=== PATIENT | female | born 1945 | race Caucasian/White ===

== ENCOUNTER → 2017-08-08 | Outpatient (CLI) | payer OTHER ==
[~2017-08-08] MED LIST: AMLODIPINE BESY10 MG PO; ASPIR 8181 M1 PO; ASPIR 8181 MG PO; CINNAMON500 MG PO; D3-5050000 UNIT PO; ELIQUIS5 MG PO; FISH OIL 1,001000 M2 PO; GARLIC1 EACH PO; GLUCOSAMINE HC500 MG PO; HYDROCHLOROTH12.5 M1 PO; HYDROCODON-ACE1 EAC7 PO; HYDROCODONE-AP1 EAC6 PO; KEFLEX250 MG PO; KEFLEX500 MG PO; KLOR-CON 1010 MEQ PO; LASIX 40 MG TAB40 M2 PO; LEVOTHYROXINE100 MC1 PO; LISINOPRIL10 MG PO; MAGOX 400400 MG PO; MINOCIN100 MG PO; NORVASC5 MG PO; SYNTHROID137 MC1 PO; TYLENOL EXTRA500 MG PO; VITAMIN E400 UNIT PO; ZESTORETIC 20-1 EACH PO
== END ==
LOC: M.WC 00:59
DX: E11.621 Type 2 diabetes mellitus with foot ulcer (principal); L97.512 Non-pressure chronic ulcer of other part of right foot with fat layer exposed; I87.2 Venous insufficiency (chronic) (peripheral); I10 Essential (primary) hypertension; E03.9 Hypothyroidism, unspecified

== ENCOUNTER 2017-09-03 12:36 | Inpatient (IN) | payer OTHER ==
[~2017-09-03] VITALS: Ht 157.5 cm; Wt 121.5 kg
[~2017-09-03 12:36] MED LIST changes: -AMLODIPINE BESY10 MG PO; -ASPIR 8181 MG PO; -ELIQUIS5 MG PO; -HYDROCHLOROTH12.5 M1 PO; -HYDROCODONE-AP1 EAC6 PO; -KEFLEX250 MG PO; -KLOR-CON 1010 MEQ PO; -LASIX 40 MG TAB40 M2 PO; -LEVOTHYROXINE100 MC1 PO; -LISINOPRIL10 MG PO; -MAGOX 400400 MG PO; -NORVASC5 MG PO; -TYLENOL EXTRA500 MG PO
[2017-09-03 12:45] VITALS: BP 181/98
[2017-09-03 13:04] LABS: ABSOLUTE BASOPHILS 0.1 thou/uL (0.0-0.2); ABSOLUTE EOSINOPHILS 0.1 thou/uL (0.0-0.7); ABSOLUTE LYMPHOCYTES 2.2 thou/uL (0.8-5.3); ABSOLUTE MONOCYTES 1.6 thou/uL (0.0-1.2); ABSOLUTE NEUTROPHILS 10.4 thou/uL (1.6-8.1); BASOPHILS 0.4 %; EOSINOPHILS 0.5 %; HEMATOCRIT 52.8 % (37.0-47.0); HEMOGLOBIN 17.7 gm/dL (12.0-15.0); LYMPHOCYTES 15.7 %; MCH 32.4 pg (26.0-34.0); MCHC 33.6 g/dL (28.0-37.0); MCV 96.7 fL (80.0-100.0); MONOCYTES 10.9 %; MPV 8.4 fl. (7.2-11.1); NUCLEATED RBCS 0 /100WBC; PLATELET COUNT* 224 thou/uL (150-400); POLYS 72.5 %; RBC 5.46 mil/uL (4.20-5.00); RDW-CV 13.5 % (10.5-14.5); WBC 14.3 thou/uL (4.0-11.0)
[2017-09-03] MEDS ORDERED: HYDROCHLOROTH12.5 M1 PO (13:12)
[2017-09-03 13:16] LABS: APTT 24.7 Seconds (25.0-31.3); INR 1.5; PROTIME 14.8 Seconds (9.20-11.50)
[2017-09-03 13:21] LABS: CALCIUM 9.3 mg/dL (8.5-10.1)
[2017-09-03 13:24] LABS: POTASSIUM 2.9 mmol/L (3.5-5.1)
[2017-09-03 13:30] LABS: ALBUMIN 3.2 g/dL (3.4-5.0); CK-MB MASS 2.5 ng/mL (<0.5-3.6); MAGNESIUM 1.6 mg/dL (1.8-2.4); TOTAL BILIRUBIN 2.1 mg/dL (<0.1-1.0); TOTAL PROTEIN 7.8 g/dL (6.4-8.2); TROPONIN-I LEVEL 0.08 ng/mL (<0.06)
[2017-09-03 17:19] VITALS: BP 175/85
--- NOTE | 2017-09-03 17:55 | NUR ---
PT TO ROOM FROM ER . APPEARS ALERT O X 4, DENIES CHEST PAIN AT REST, STATES CHEST PAIN OR ABDOMINAL PAIN WITH DEEP BREATH ONLY, STATES ALSO HURTS MORE WHEN COUGHS. A-FIB ON MONITOR, RATE LOW 60S E, NEW ONSET PER ER REPORT, IS ON HEPARIN GTT AT 1500 UINITS PER HOUR, NEXT PTT A5 2100, DENIES SOB, ALSO C/O R FOOT PAIN, RECENT SKIN GRAFTS TO R FOOT.
[2017-09-03 19:33] VITALS: BP 142/78
--- NOTE | 2017-09-03 19:50 | NUR ---
PT SITTING UP IN CHAIR, REMAINS ALERT O X 4, NO C/O, A-FIB ON MONITOR, RATE LOW 60SW, CARDIOLOGY CONSULTED, DR VAZQUEZ WAS UPDATED
[2017-09-03 20:00] VITALS: BP 149/90
[2017-09-03 22:30] VITALS: BP 149/90
[2017-09-04] VITALS (7 sets, daily range): BP systolic 100–190; BP diastolic 62–97
--- NOTE | 2017-09-04 04:09 | NUR ---
ASSUMED CARE OF PT AT 1930, NURSING ASSESSMENT COMPLETED AT START OF SHIFT, PT VOICED NO CONCERNS THIS SHIFT, PT ON TELE MONITOR, TRACING AFIB. CONTINUES ON HEPARIN DRIP AT THIS TIME, PT EDUCATED ON FALL PRECAUTIONS, PT ALSO EDUCATED ON IMPORTANCE OF ALLOWING NURSING STAFF TO ASSIST PATIENT. PT VOICED UNDERSTANDING. CALL LIGHT WITHIN REACH. HOURLY ROUNDING COMPLETED THIS SHIFT.
[2017-09-04 05:23] LABS: HEMATOCRIT 50.3 % (37.0-47.0); HEMOGLOBIN 16.5 gm/dL (12.0-15.0); MCH 31.9 pg (26.0-34.0); MCHC 32.8 g/dL (28.0-37.0); MCV 97.1 fL (80.0-100.0); MPV 8.9 fl. (7.2-11.1); RBC 5.19 mil/uL (4.20-5.00); RDW-CV 13.6 % (10.5-14.5); WBC 14.1 thou/uL (4.0-11.0)
[2017-09-04 05:53] LABS: ALKALINE PHOSPHATASE 96 U/L (46-116); ANION GAP 6 mmol/L (7-16); BUN 22 mg/dL (7-18); CALCIUM 8.9 mg/dL (8.5-10.1); CHLORIDE 99 mmol/L (98-107); CO2 37 mmol/L (21-32); GLUCOSE 109 mg/dL (70-99); MAGNESIUM 1.7 mg/dL (1.8-2.4); POTASSIUM 3.7 mmol/L (3.5-5.1); SGOT 111 U/L (15-37); SGPT 79 U/L (30-65); SODIUM 142 mmol/L (136-145); TOTAL BILIRUBIN 1.7 mg/dL (<0.1-1.0); TOTAL PROTEIN 7.3 g/dL (6.4-8.2); TROPONIN-I LEVEL <0.06 ng/mL (<0.06)
--- NOTE | 2017-09-04 11:49 | EKG ---
[place] [address] ELECTROCARDIOGRAM REPORT Name: JOYCE SHER Room: [address] ADM IN .R.#: [id number] Admission: 09/03/17 Attend Phys: Rich Barrett, Discharge: Date of : 43 Report #: [id number] THIS REPORT FOR: //name// [facility] ED Test Date: 2017-09-03 Test Time: 12:45:42 Pat Name: JOYCE SHER Department: Room: [facility] Gender: F [employer] Operator: Anya BOO : 1945 Requested By: Mitch Echols Order Number: [id number] MD: Rei Quintanilla Measurements Intervals [place] Rate: 89 P: TN: QRS: 40 QRSD: 78 T: -27 QT: 446 QTc: 543 Interpretive Statements Atrial fibrillation Ventricular tachycardia, unsustained Aberrant conduction of SV complex(es) Low voltage, extremity and precordial leads Consider anterior infarct Compared to ECG 12/28/2016 02:03:30 Ventricular tachycardia now present Aberrant conduction of supraventricular beat(s) now present Sinus rhythm no longer present Atrial premature complex(es) no longer present First degree AV block no longer present Myocardial infarct finding still present Electronically Signed On 09-04-2017 11:48:55 SOLARIS ADMINISTRATOR by Rei Quintanilla [email or web address] <ELECTRONICALLY SIGNED> By: Rei Quintanilla MD, [facility] 09/04/17 1148 1245 1245 Rei Quintanilla MD, [facility] /EPI
--- NOTE | 2017-09-04 19:58 | NUR ---
I ASSUMED CARE OF THE PATIENT AT 0700. SHE IS ALERT AND ORIENTED X4, BED IS IN THE LOW LOCKED POSITION AND CALL LIGHT IS IN REACH. HOURLY ROUNDING WAS DONE AND PATIENT NEEDS ARE MET. PAIN IS MANAGED WITH PRN MEDS. URINE STUDIES WERE ORDERED BY NEPHROLOGY AND WOUND CARE DRESSING WAS DONE ON HER RIGHT FOOT. MAGNESIUM WAS REPLACED AND WILL BE REDRAWN WITH AM LABS. ECHO IS SCHEDULED FOR 09/05/17. NEW CONSULTS WERE ORDERED. PATIENT HAS REQUESTED SOMETHING TO HELP HER PRODUCE A STOOL BUT DOESN'T WANT IT UNTIL MORNING SO SHE CAN SLEEP TONIGHT. REPORT GIVEN AND WILL CONTINUE TO MONITOR. UP WITH ASSIST X1 TO THE COMMODE.
[2017-09-05 04:06] VITALS: BP 143/74
[2017-09-05 05:03] LABS: URINE BILIRUBIN NEGATIVE (Negative); URINE BLOOD 2+ (Negative); URINE CLARITY CLEAR; URINE COLOR YELLOW; URINE GLUCOSE-RANDOM NEGATIVE (Negative); URINE KETONES NEGATIVE (Negative); URINE LEUKOCYTES NEGATIVE (Negative); URINE NITRITE NEGATIVE (Negative); URINE PROTEIN TRACE (Negative); URINE UROBILINOGEN 0.2 E.U./dl (0.2-1.0)
--- NOTE | 2017-09-05 05:06 | NUR ---
ASSUMED CARE OF PT AT 1930, NURSING ASSESSMENT COMPLETED AT START OF SHIFT, PT VOICED NO CONCERNS. PT CONTINUES ON TELE MONITOR TRACING AFIB IN THE 60'S. HEPARIN DRIP INFUSING AT 11 ML/HR. PRN PAIN MEDICATION ADMINISTERED X1 THIS SHIFT. PT NPO AFTER MIDNIGHT FOR ECHO THIS AM. PT EDUCATED ON IMPORTANCE AND VERBALIZED UNDERSTANDING. FALL PRECAUTIONS IN PLACE, CALL LIGHT WITHIN REACH.
[2017-09-05 05:23] LABS: HEMATOCRIT 50.5 % (37.0-47.0); HEMOGLOBIN 16.6 gm/dL (12.0-15.0); MCH 32.1 pg (26.0-34.0); MCHC 32.9 g/dL (28.0-37.0); MCV 97.5 fL (80.0-100.0); RBC 5.18 mil/uL (4.20-5.00); RDW-CV 13.5 % (10.5-14.5); WBC 12.7 thou/uL (4.0-11.0)
[2017-09-05 05:35] LABS: CALCIUM 8.5 mg/dL (8.5-10.1); POTASSIUM 3.4 mmol/L (3.5-5.1)
[2017-09-05 06:10] LABS: CASTS None Seen /LPF (None Seen); MUCUS 4-6 Moderate strn/LPF (None Seen); SQUAMOUS >10 Many /LPF (0-3)
[2017-09-05 06:11] LABS: CRYSTALS None Seen /LPF (None Seen); URINE RBC 3-10 Few /HPF (0-2); URINE WBC 0-5 Rare /HPF (0-5)
[2017-09-05 08:30] VITALS: BP 144/71
[2017-09-05] MEDS ORDERED: NORVASC5 MG PO (08:39)
[2017-09-05] MEDS ORDERED: ELIQUIS5 MG PO (08:39)
[2017-09-05 11:46] VITALS: BP 149/89
--- NOTE | 2017-09-05 14:21 | 2DMMODE ---
[place] [address] 2 D/M-MODE ECHOCARDIOGRAM Name: JOYCE SHER Room: [address] IN .R.#: [id number] Admission: 09/03/17 Attend Phys: Rich Potts Discharge: Date of : 43 Date of Service: 09/05/17 1421 Report #: [id number] THIS REPORT FOR: //name// APPROVED REPORT Study performed: 09/05/2017 09:46:03 EXAM: Comprehensive 2D, Doppler, and color-flow Echocardiogram Patient Location: Bedside BSA: 2.17 HR: 66 bpm BP: 143/74 mmHg Other Information Study Quality: Fair Technically limited study due to uncooperative patient, inability to position patient. Indications Atrial Fibrillation 2D Dimensions LVEF(%): 49.64 (>50%) IVSd: 12.33 (7-11mm) LVOT Diam: 18.39 (18-24mm) LVDd: 41.41 mm PWd: 11.75 (7-11mm) Ascending Ao: 26.96 (22-36mm) LVDs: 31.12 (25-40mm) Aortic Root: 21.65 mm Herzog's LVEF: 49.64 % Volumes Left Atrial Volume (Systole) LA ESV Index: 37.30 mL/m2 Aortic Valve AoV Peak Juanito.: 1.93 m/s AO Peak Gr.: 14.92 mmHg AO Mean Gr.: 9.47 mmHg AO V2 VTI: 37.55 cm Mitral Valve E/A Ratio: 4.02 MV Decel. Time: 198.91 ms MV E Max Juanito.: 1.04 m/[place] [address] 2 D/M-MODE ECHOCARDIOGRAM Name: NIKKYJOYCE Wiley Room: [address] IN [facility]#: [id number] Admission: 09/03/17 Attend Phys: Rich Potts Discharge: Date of : 43 Date of Service: 09/05/17 1421 Report #: [id number] MV PHT: 57.68 ms MVA (PHT): 3.81 cm2 TDI E/Lateral E': 10.40 E/Medial E': 13.00 Medial E' Juanito.: 0.08 m/s Lateral E' Juanito.: 0.10 m/s Pulmonary Valve PV Peak Juanito.: 0.78 m/s PV Peak Gr.: 2.46 mmHg Tricuspid Valve RAP Estimate: 5.00 mmHg TR Peak Gr.: 19.07 mmHg RVSP: 24.07 mmHg PA Pressure: 24.07 mmHg Left Ventricle The left ventricle is normal size. There is normal LV segmental wall motion. Mild concentric left ventricular hypertrophy. Left ventricular systolic function is normal. The left ventricular ejection fraction is within the normal range. LVEF is 50-55%. The left ventricular diastolic function is normal. Right Ventricle Right ventricle is mildly dilated. The right ventricular systolic function is normal. Atria Left atrium is mildly dilated. Right atrium is dilated. Aortic Valve Aortic valve is calcified. Trace aortic regurgitation. There is no aortic valvular stenosis. Mitral Valve The mitral valve is normal in structure. There is no mitral valve regurgitation noted. No evidence of mitral valve stenosis. Tricuspid Valve The tricuspid valve is normal in structure. Mild tricuspid regurgitation. estimated pa pressure 25 mm Hg Pulmonic Valve Pulmonic valve is not well visualized. [place] [address] 2 D/M-MODE ECHOCARDIOGRAM Name: JOYCE SHER Room: [address] IN ..#: [id number] Admission: 09/03/17 Attend Phys: Rich Potts Discharge: Date of : 43 Date of Service: 09/05/17 1421 Report #: [id number] Great Vessels The aortic root is normal in size. IVC is not visualized. Pericardium There is no pericardial effusion. Pleural effusion. <Conclusion> Mild concentric left ventricular hypertrophy. LVEF is 50-55%. Left atrium is mildly dilated. Right atrium is dilated. Aortic valve is calcified. <ELECTRONICALLY SIGNED> By: Abdifatah Prakash MD, FACC 09/05/17 1421 1421 142 Abdifatah Prakash MD, FAC /INF
--- NOTE | 2017-09-05 15:00 | NUR ---
PT IN CHAIR FOR BREAKFAST. A & 0 X4. ASSESSMENT COMPLETE. AFIB ON MONITOR. PT TO RADIOLOGY FOR US. CHRIS WELL. PT STATES SHE FEELS TOO WEAK TO DISCHARGE TODAY. CALL PLACED TO DR. GARCIA WHO AGREES TO HOLD DC. NEEDED ITEMS AND CALL LIGHT IN REACH.
--- NOTE | 2017-09-05 15:46 | NUR ---
WOUND CARE NOTE: PATIENT OUT OF ROOM, WILL ATTEMPT TO SEE TOMORROW.
--- NOTE | 2017-09-05 15:56 | NUR ---
CM ASSESSMENT: Pt is A&O. Resides at home with her . Independent with ADLs. No DME. No hx of HH or SNF. Supportive family that is involved in POC. Goal is to return home once medically stable. Following.
[2017-09-05 16:00] VITALS: BP 118/69
[2017-09-05 20:00] VITALS: BP 145/77
[2017-09-06] VITALS (7 sets, daily range): BP systolic 111–148; BP diastolic 57–86
--- NOTE | 2017-09-06 02:27 | NUR ---
PATIENT WAS TRANSFERRING WITH STAFF FROM COMMODE TO BED, WHICH WAS NOT EVEN A FOOT APART WHEN PATIENT TOOK A STEP AND FELL BACKWARDS ON HER BOTTOM. PATIENT DID HAVE YELLOW SOCKS ON. PATIENT DID NOT HIT HER HEAD, DENIES PAIN AND INJURY, POST FALL ASSESSMENT WNL. NO CHANGE IN MENTATION. VSS. FALL PRECAUTIONS IN PLACE. BED LOCKED AND IN LOW POSITION. CALL LIGHT WITHIN REACH
--- NOTE | 2017-09-06 07:46 | NUR ---
PATIENT PROGRESSING TOWARDS GOALS: PATIENT SLEPT WELL THROUGHOUT SHIFT WITH RELIEF OF ANXIETY WITH CLONOPINE. PATIENT STATED THIS AM THAT SHE WAS "ANTICIPATING DISCHARGE HOME TODAY." PATIENT'S VSS THIS SHIFT. PATIENT REMAINS ON 2L O2 NC WITH SATS >92%. PATIENT DENIES PAIN AND DISCOMFORT. HOURLY ROUNDING OBSERVED. CALL LIGHT WITHIN REACH
[2017-09-06] MEDS ORDERED: MAGOX 400400 MG PO (09:21)
[2017-09-06] MEDS ORDERED: KLOR-CON 1010 MEQ PO (09:21)
--- NOTE | 2017-09-06 11:51 | NUR ---
ASSUMED PT CARE AT 0700 PT IS ALERT AND ORIENTED X 4 PT DENIES PAIN OR SOA PT IS UP WITH ASSIST PT IS A FALL RISK BED ALARM IS ON PT CALLS OUT APPROPRIATELY, PT IS AFIB ON THE MONITOR, PT HAD BOWEL MOVEMENT TODAY, PT LIVES AT HOME WITH WHO HELPS WITH CARE, PT WILL DISCHARGE TO HOME WILL CONTINUE TO MONITOR
[2017-09-06] MEDS ORDERED: HYDROCODONE-AP1 EAC6 PO (13:16)
--- NOTE | 2017-09-06 15:20 | CON ---
[address] [address] CONSULTATION Name: JOYCE SHER Room: [address] IN M.R.#: [id number] Admission: 09/03/17 Attend Phys: Rich Barrett, Discharge: Date of : 43 Report #: [id number] THIS REPORT FOR: //name// CC: Tanner Barrett CHIEF COMPLAINT: Abdominal pain, atrial fibrillation. 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 From a cardiovascular standpoint, she has minimal complaints. She has no complaints of palpitations, heart racing or skipping. She denies chest pain or pressure. She has chronic shortness of breath. She presents with a slow ventricular response and atrial fibrillation with heart rates in the 60s. She has been placed on IV heparin and seems to be tolerating it. She denies any history of GI bleeding. She has no documented history of cardiac abnormalities. PAST MEDICAL HISTORY: Significant for chronic cellulitis, morbid obesity, debilitation, hypertension, diabetes mellitus. SOCIAL HISTORY: She is a nonsmoker. She is and lives with her . PAST SURGICAL HISTORY: No recent surgeries. HOME MEDICATIONS: Include Zestoretic 24/12.5 mg daily, aspirin, Synthroid 0.25 mg daily, and cinnamon. She has been placed on IV heparin here in the hospital. REVIEW OF SYSTEMS: GASTROINTESTINAL: Positive abdominal pain, nausea, vomiting. SKIN: Positive cellulitis. MUSCULOSKELETAL: Positive foot pain. GASTROINTESTINAL: No nausea, vomiting, hematemesis or melena. CARDIOVASCULAR: Positive irregular heartbeats very rarely. Denies shortness of breath. No chest pain, palpitations. NEUROLOGIC: Denies slurred speech, numbness or weakness. No documented history of stroke or transient ischemic attack. HEMATOLOGIC: No anemia or bleeding disorders. RENAL: Positive history of mild renal insufficiency. PHYSICAL EXAMINATION: [place] [address] CONSULTATION Name: JOYCE SHER Room: [address]#: [id number] Admission: 09/03/17 Attend Phys: Rich Barrett, Discharge: Date of : 43 Report #: [id number] VITAL SIGNS: Blood pressure 130/95, pulse 65 in atrial fibrillation, temperature is 36.9. GENERAL: This is a morbidly obese elderly female. She is a poor historian, is alert, in no apparent distress. HEENT: Eyes, EOMs intact. No facial asymmetry. NECK: Supple. No jugular venous distention. CARDIOVASCULAR: Irregular. I could hear a faint heart murmur. ABDOMEN: Nontender. EXTREMITIES: No peripheral edema. SKIN: Warm and dry. There is +1 to 2 edema. NEUROLOGICAL: Not formally tested. LABORATORY DATA: Electrocardiogram demonstrates atrial fibrillation, slow ventricular response. IMPRESSION: 1. Thromboembolism, likely this is cardiovascular in etiology, if she has concern for chronic infection, I would consider also evaluation for bacterial endocarditis. We will check an echocardiogram to assess left ventricular function. At this point in time, she has been placed on IV heparin and given her atrial fibrillation and her CHADS-VASc score of 4, I would recommend further evaluation and treatment with an oral anticoagulant, Eliquis would be appropriate. 2. Atrial fibrillation. This is rate controlled and she is minimally symptomatic. She does have findings compatible with congestive heart failure, this may be systolic in etiology. 3. Morbid obesity. 4. Diabetes mellitus. <ELECTRONICALLY SIGNED> By: Rei Quintanilla MD, FACC 09/06/17 1520 [id number] Quintanilla MD, FACC /nt
--- NOTE | 2017-09-06 15:30 | NUR ---
Pt dc delayed, ex ox completed, Pt 86% on RA. Updated Dr Tapia, he wants Pt to go to [facility], discussed with Pt and she is in agreement. Faxed referral to [facility]. PT/OT orders received. Anticipate dc tomorrow. Spoke with Katya at , they have beds available. Faxed initial referral, therapy notes will need to be faxed once available [phone]
--- NOTE | 2017-09-06 16:46 | NUR ---
WOUND CARE NOTE: CONSULT RECEIVED FOR RIGHT FOOT WOUND. PATIENT IS S/P SKIN GRAFT TO RIGHT FOOT. PATIENT STATES DR. RIVREA PERFORMED THE PROCEDURE AND HAS HEALED THE WOUND. DORSAL ASPECT OF FOOT IS A BLACK, INTACT SKAB WITH SCALING TO THE JAMES-WOUND. NO DRAINAGE NOTED. LEFT OPTIFOAM BORDER IN PLACE TO PROTECT AREAS. RECOMMEND CHANGING DRESSING EVERY WEEK AND PRN. THE DRESSING SHOULD REMAIN IN PLACE TO ASSIST WITH KEEPING SCAB INTACT AND NOT TEARING THE SCALING SKIN OFF. WILL SIGN OFF AT THIS TIME, PLEASE RECONSULT IF NEEDED.
[2017-09-07] VITALS (9 sets, daily range): BP systolic 114–154; BP diastolic 61–92
--- NOTE | 2017-09-07 07:51 | NUR ---
PATIENT RESTED WELL THROUGH THE NIGHT. UP WITH ASSIST TO BSC. DENIES PAIN OR NEEDS. BED ALARM ON. REPORT GIVEN TO ONCOMING NURSE.
--- NOTE | 2017-09-07 13:36 | NUR ---
PATIENT IS ALERT AND ORIENTED TODAY, VERY PLEASANT. UP STAND BY WITH OXYGEN TUBING. PATIENT HAS NO COMPLAINTS OF ANY PAIN TODAY. VITAL SIGNS HAVE BEEN STABLE ON 2 LITERS OF OXYGEN THROUGH NASAL CANNULA. PATIENT IS SUPPOSE TO BE DISCHARGED TO A FACILITY LATER TODAY, WAITING ON AUTHORIZATION. CALL LIGHT IS IN REACH, WILL CONTINUE TO MONITOR.
[2017-09-08] VITALS: BP 132/83
[2017-09-08 04:19] VITALS: BP 130/81
[2017-09-08 08:00] VITALS: BP 124/53
--- NOTE | 2017-09-08 08:13 | NUR ---
PATIENT RESTED WELL THROUGH THE NIGHT. UP WITH ASSIST X2 TO BSC. DENIES PAIN OR NEEDS. ORDERS IN CHART FOR PATIENT TO HAVE ONE UNIT OF BLOOD REMOVED, DR. BARRAZA NOTIFIED TO CLARIFY ORDER, ORDERS RECEIVED AND NOTED. PUBLICIST NOTIFIED, STATES WILL BE DONE IN INFUSION LAB. REPORT GIVEN TO ONCOMING NURSE. BED ALARM ON. WILL MONITOR.
--- NOTE | 2017-09-08 09:20 | NUR ---
[facility] was received insurance auth, Pt can dc today to [facility] if medically stable. Following.
[2017-09-08 11:36] VITALS: BP 119/65
--- NOTE | 2017-09-08 12:23 | NUR ---
CONSULTED TO DO THERAPUTIC PHLEBOTOMY. SPOKE WITH PT AND DAUGHTER REGUARDING PROCESS. VOICED UNDERSTANDING AND DENIES QUESTIONS. 18G IV STARTED WITHOUT DIFFICULTY. 1 UNIT WHOLE BLOOD REMOVED VIA GRAVITY. REMAINED WITH PT 1:1 DURING PROCUDURE. TOLERATED WELL. IV REMOVED AT END. DENIES QUESTIONS OR NEEDS. PRIMARY NURSE IQRA AT BEDSIDE TO START POST HYDRATION PER ORDER.
--- NOTE | 2017-09-08 12:30 | NUR ---
RECEIVED REPORT. ASSUMED CARE OF PT AT 0730, PT A&O X4. VSS. O2 SAT 95% ON 2L PER NC. SALES DEVELOPMENT MANAGER IN PLACE TRACING AFIB. AM ASSESSMENT AND VITALS COMPLETED CHARTED. IV PATENT AND INFUSING POST THERAPEUTIC NORMAL SALINE INFUSION OF 25OML ORDERED BY DR. BARRAZA. 1 UNIT OF BLOOD SUCCESSFULLY TAKEN OFF BY MAITE REBOLLAR FROM INFUSION. PT RECEIVED 1:1 MONITORING DURING PROCEDURE. PT TOLERATED WELL. PT EATING AND DRINKING WITHOUT ISSUE. PT UP WITH ASSIST X1 TO BEDSIDE COMMODE - VOIDING WITHOUT ISSUE. PT INFORMED OF PLAN OF CARE. PT COMMUNICATES UNDERSTANDING. DAUGHTER AT BEDSIDE. HIGH RISK FALL PRECAUTIONS IN PLACE. CALL LIGHT IS WITHIN REACH. WILL CONTINUE TO MONITOR.
--- NOTE | 2017-09-08 14:09 | NUR ---
Nutrition: Pt seen for high BMI. Wt is usually around 270#. Pt was eating a yogurt from [employer] when I entered her room. She had finished all of her lunch. She stated she only eats a couple meals a day. "I do keep track of my sugars and my blood pressure." She seemed a little confused during conversation and got off on tangents easily. Good appetite, regular diet. Sometimes SOA upon eating. Plan is to go to [place] tomorrow. Mild risk.
[2017-09-08 15:50] VITALS: BP 139/63
--- NOTE | 2017-09-08 19:01 | NUR ---
VSS. 02 SAT REMAINS >90% ON 2L PER NC. PT A&O X4 BUT HAS SOME EPISODES OF FORGETFULLNESS. CARDAIC MONITOR IN PLACE WITH NO CHAGNES THIS SHIFT. PT PROGRESSING TOWARDS GOALS. PLAN IS TO DC TOMORROW TO [facility] IF LABS ARE STABLE. CBC PUT IN ORDERED BY DR BARRAZA. PT UP WITH ASSIST TO BEDSIDE COMMODE TO VOID; PT HAD ONE EPISODE OF STRESS INCONTINENCE. PT SHOWING GOOD APPETITE. IV SALINE LOCKED. PT HAS DENIED PAIN OR DISCOMFORT THROUGHOUT THE SHIFT. HOURLY ROUNDING PERFORMED. HIGH FALL RISK PRECAUTIONS IN PLACE. CALL LIGHT IS WITHIN REACH.
[2017-09-08 19:40] VITALS: BP 128/66
[2017-09-08 20:07] LABS: HEMATOCRIT 48.2 % (37.0-47.0); HEMOGLOBIN 15.6 gm/dL (12.0-15.0); MCH 31.9 pg (26.0-34.0); MCHC 32.3 g/dL (28.0-37.0); MCV 98.8 fL (80.0-100.0); MPV 7.6 fl. (7.2-11.1); RBC 4.88 mil/uL (4.20-5.00); RDW-CV 13.4 % (10.5-14.5); WBC 9.3 thou/uL (4.0-11.0)
[2017-09-09] VITALS: BP 125/79
[2017-09-09 04:32] VITALS: BP 134/72
--- NOTE | 2017-09-09 04:38 | NUR ---
ASSUMED CARE AT 1940, ASSESSMENT CHARTED. PATIENT ALERT/ORIENTED X4, SITTING UP IN CHAIR. UP WITH ASSIST X2 TO BSC. DENIES PAIN OR NEEDS. ASSISTED TO TURN IN BED Q2H. REFUSING SCD'S. MEDS PER MAR. BED ALARM ON. CALL LIGHT WITHIN REACH, ENCOURAGED TO CALL FOR NEEDS.
[2017-09-09 08:00] VITALS: BP 107/52
[2017-09-09] MEDS ORDERED: HYDROCODONE-AP1 EAC6 PO (10:43)
[2017-09-09] MEDS ORDERED: AMLODIPINE BESY10 MG PO (10:43)
[2017-09-09 11:30] VITALS: BP 118/55
--- NOTE | 2017-09-09 11:34 | NUR ---
Following through dc. Pt discharging to [facility] today, facility will provide dc transportation and will berry picker at 330pm. Faxed dc orders. Chart copied. Nurse report number provided, . aware of disposition.
--- NOTE | 2017-09-09 12:46 | NUR ---
ASSUMED CARE OF PT AT 0730. PT RESTING IN BED WAITING FOR BREAKFAST. PT A&0X4. DENIES ANY PAIN OR SHORTNESS OF BREATH AT THIS TIME. PT TRACING AFIB ON THE NURSE PRACTITIONER HOSPITALIST. RATE IN THE 60'S. PT ON 2L NC SAT 97%. PT TO HAVE REST AND EXERCISE SATURATION TODAY TO SEE IF WILL NEED OXYGEN AT DISCHARGE. PT GOAL FOR TODAY IS TO DISCHARGE TO [place] FOR REHAB. PT HAS STRESS INCONT. PT UP WITH 1-2 ASSIST. PT UNSTEADY AND WEAK AT TIMES. PT AT BEDSIDE THIS MORNING. PT TO WORK WITH PHYSICAL AND OCCUPATIONAL THERAPY TODAY. AM ASSESSMENT CHARTED. MEDICATIONS PER SEP. PT REPOSITIONS SELF IN BED WITH REMINDERS. HOURLY ROUNDING OBSERVED. BED IN LOW POSITION. BED ALARM IN PLACE. FALL PRECAUTIONS IN PLACE. CALL LIGHT WITHIN REACH. WILL CONTINUE PLAN OF CARE.
--- NOTE | 2017-09-09 13:24 | CON ---
[address] [address] CONSULTATION Name: NIKKYJOYCE K Room: [address] IN M.R.#: [id number] Admission: 09/03/17 Attend Phys: Rich Barrett, Discharge: Date of : 43 Report #: [id number] THIS REPORT FOR: //name// CC: Tanner Barrett DATE OF SERVICE: 09/05/2017 REQUESTING PHYSICIAN: Dr. Bj Clemons. REASON FOR CONSULTATION: Polycythemia. HISTORY OF PRESENT ILLNESS: The patient is a pleasant 72-year-old woman with multiple medical problems, morbid obesity, hypertension, diabetes mellitus who is admitted to the hospital with abdominal pain. She was found to have infarction of spleen and left kidney. She was found to have a mild polycythemia with elevated hematocrit and hemoglobin, red cells. Hematology consult is requested. She is doing much better now. She was found to have new atrial fibrillation on this admission, she is on anticoagulation. She says the abdominal pain is better. She does not have complaints of previous venous or arterial thrombosis. She states that she has been dealing with chronic cellulitis and wound on her toe for many months. This was recently cleared. Denies headaches. Denies paresthesia. Denies early satiety, weight loss. PAST MEDICAL HISTORY: Significant for multiple medical problems, which is mentioned in HPI. SOCIAL HISTORY: She lives in [place] with her . has macular degeneration. It is difficult for the patient and her to drive. She does not smoke. She is a never smoker. FAMILY HISTORY: Noncontributory. PHYSICAL EXAMINATION: GENERAL: Reveals obese woman, not in acute distress. VITAL SIGNS: Blood pressure 149/89, heart rate is 71, temperature 97.5, respirations 18. HEENT: Does not reveal thrush. LUNGS: Clear. ABDOMEN: Obese, nontender. EXTREMITIES: Lower extremities no edema. There is no supraclavicular or axial lymphadenopathy. SKIN: [place] [address] CONSULTATION Name: JOYCE SHER Room: [address] IN ..#: [id number] Admission: 09/03/17 Attend Phys: Rich Barrett, Discharge: Date of : 43 Report #: [id number] LABORATORY DATA: White count 12.7, hemoglobin 16.6, hematocrit 50.5, platelets ____. Erythropoietin level is pending. ASSESSMENT AND PLAN: Polycythemia, most likely reactive or secondary to possibly sleep apnea. I agree with erythropoietin level. Reviewing her previous medical records, she has not had polycythemia until January of last year. On the other hand, the patient has a new arterial infarct in setting of polycythemia and to make sure that this is not an underlying bone marrow problem. It is unlikely. I offered her to have followup at our clinic, but she does not want to drive. I plan to discuss this case with ____, primary care physician. I will advise to order CBC next week. If her red cells and hemoglobin is normal, no further workup is necessary. If it is still elevated, we will be happy to see her in our office. Thank you very much for allowing me to participate in care of this patient. <ELECTRONICALLY SIGNED> By: Mari Balderrama MD 09/09/17 1324 1633 2042Mari Balderrama MD /nt
--- NOTE | 2017-09-09 14:10 | NUR ---
DISCHARGE ORDERS RECEIVED. DISCHARGE INSTRUCTIONS, CARE NOTES, SCRIPTS AND FOLLOW UP APPTS COPIED AND PLACED IN FOLDER FOR TRANSPORTER. IV AND ASSISTANT CHIEF NURSING OFFICER REMOVED. DISCHARGE WOUND PHOTO TAKEN AND PLACED IN CHART UNDER PROGRESS NOTES. REPORT CALLED TO RUPA AT [facility]. PT DISCHARGED WITH ALL BELONGINGS AND PAPERWORK VIA WHEELCHAIR WITH WHEELCHAIR VAN SERVICE TO [facility].
--- NOTE | 2017-09-20 12:39 | CON ---
[address] [address] CONSULTATION Name: NIKKYJOYCE K Room: [address] IN M.R.#: [id number] Admission: 09/03/17 Attend Phys: Rich Barrett, Discharge: 09/09/17 Date of : 43 Report #: [id number] THIS REPORT FOR: //name// CC: Tanner Barrett DATE OF SERVICE: 09/04/2017 ATTENDING PHYSICIAN: Dr. Rich Barrett. CONSULTING PHYSICIAN: Dr. Rich Barrett REASON FOR CONSULTATION: Renal infarct. ADMISSION DIAGNOSES: Abdominal pain and some chest pain. HISTORY OF PRESENT ILLNESS: This is a very pleasant 72-year-old female with past medical history of diabetes type 2, but not on any medications for that; hypertension, who came in with abdominal pain and chest pain. She was found to have mildly elevated troponin in the ER and also likely new onset AFib. Her CT abdomen and pelvis with contrast showed evidence of both renal as well as splenic infarct. Creatinine is 1.0. At home, she does take hydrochlorothiazide and lisinopril. She denies any use of cocaine. She has been started on IV heparin. Cardiology has been consulted. The patient feels better right now. REVIEW OF SYSTEMS: Abdominal pain, which is now better, fatigue. Otherwise, 10-point review of systems done, negative. No urinary complaints. FAMILY HISTORY: Noncontributory. PAST MEDICAL HISTORY: Includes diabetes mellitus, hypothyroidism, hypertension. PAST SURGICAL HISTORY: Surgery on foot requiring skin graft. SOCIAL HISTORY: No smoking, alcohol or any other recreational drugs. HOME MEDICATIONS: Reviewed. CURRENT MEDICATIONS: Reviewed. ALLERGIES: Reviewed. PHYSICAL EXAMINATION: VITAL SIGNS: Blood pressure is 119/63, respiration rate is 16, pulse rate 59, temperature 36.7. GENERAL: She is awake, alert, oriented x 3, [place] [address] CONSULTATION Name: JOYCE SHER Room: [address]#: [id number] Admission: 09/03/17 Attend Phys: Rich Barrett, Discharge: 09/09/17 Date of : 43 Report #: [id number] HEAD, EYES, EARS, NOSE AND THROAT: Mucous membranes are moist. NECK: No JVD. CHEST: Clear to auscultation bilaterally. CARDIOVASCULAR: S1, S2 normal and no murmurs heard. ABDOMEN: Obese, otherwise soft, nondistended, nontender. Bowel sounds are present. EXTREMITIES: No lower extremity edema, symmetrical extremities. NEUROLOGIC: ____. PSYCHIATRIC: Mood and affect seem to be normal. LABORATORY DATA: WBC is 14.1, hemoglobin 16.5. Sodium is 142, potassium 3.7 and creatinine is 1.0. Other labs were reviewed. IMAGING: CTA was reviewed. Abdomen and pelvis CT showed embolic appearing areas of infarct with decreased enhancement of the left kidney, majority of the spleen and evidence of mild ascites and possible abnormal endometrial thickening. ASSESSMENT: 1. Renal infarct. 2. Splenic infarct. 3. Elevated troponin. 4. Diabetes type 2. 5. Hypertension. 6. New onset atrial fibrillation. 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 Recommend doing hypercoagulable workup once she is off of her anticoagulation. Agree with IV heparin. The patient needs a cardiology consultation, which has been ordered, especially an echocardiogram. We will also check a urine protein to creatinine ratio. Since the patient received IV dye yesterday, so stop her hydrochlorothiazide today. We will monitor her creatinine. Thank you for this consultation, and we will continue to follow along. <ELECTRONICALLY SIGNED> By: Aidee Noland MD 09/20/17 1239 0803 1224Aabilio Noland MD /nt
== END 2017-09-09 14:00 | DRG 698 ==
LOC: M.ERS 12:36 → M.2W 14:49 → M.TBA-ER 14:49 → M.2W 17:16
PROVIDERS: Family Medicine; Internal Medicine; ADMIT Family Medicine
DX: N28.0 Ischemia and infarction of kidney (principal); I50.33 Acute on chronic diastolic (congestive) heart failure; I74.8 Embolism and thrombosis of other arteries; Z68.42 Body mass index [BMI] 45.0-49.9, adult; D68.59 Other primary thrombophilia; I16.1 Hypertensive emergency; E66.01 Morbid (severe) obesity due to excess calories; E11.9 Type 2 diabetes mellitus without complications; I16.0 Hypertensive urgency; G47.33 Obstructive sleep apnea (adult) (pediatric); R93.8 Abnormal findings on diagnostic imaging of other specified body structures; I11.0 Hypertensive heart disease with heart failure; E03.9 Hypothyroidism, unspecified; I48.91 Unspecified atrial fibrillation; Z79.82 Long term (current) use of aspirin; Z79.899 Other long term (current) drug therapy; Z82.49 Family history of ischemic heart disease and other diseases of the circulatory system

== ENCOUNTER → 2017-10-19 | Outpatient (CLI) | payer OTHER ==
[~2017-10-19] MED LIST changes: +AMLODIPINE BESY10 MG PO; +ASPIR 8181 MG PO; +ELIQUIS5 MG PO; +HYDROCHLOROTH12.5 M1 PO; +HYDROCODONE-AP1 EAC6 PO; +KEFLEX250 MG PO; +KLOR-CON 1010 MEQ PO; +LASIX 40 MG TAB40 M2 PO; +LEVOTHYROXINE100 MC1 PO; +LISINOPRIL10 MG PO; +MAGOX 400400 MG PO; +NORVASC5 MG PO; +TYLENOL EXTRA500 MG PO
== END ==
LOC: M.RAD 13:14
DX: Z12.31 Encounter for screening mammogram for malignant neoplasm of breast (principal)

== ENCOUNTER 2017-12-15 11:59 | Inpatient (IN) | payer OTHER ==
[~2017-12-15] VITALS: Ht 157.5 cm; Wt 102.1 kg
[~2017-12-15 11:59] MED LIST changes: -ASPIR 8181 MG PO; -KEFLEX250 MG PO; -LASIX 40 MG TAB40 M2 PO; -LEVOTHYROXINE100 MC1 PO; -LISINOPRIL10 MG PO; -TYLENOL EXTRA500 MG PO
[2017-12-15 12:00] VITALS: BP 147/56
[2017-12-15] MEDS ORDERED: LASIX 40 MG TAB40 M2 PO (12:03)
[2017-12-15] MEDS ORDERED: LISINOPRIL10 MG PO (12:06)
[2017-12-15] MEDS ORDERED: ASPIR 8181 MG PO (12:08)
[2017-12-15] MEDS ORDERED: LEVOTHYROXINE100 MC1 PO (12:08)
[2017-12-15] MEDS ORDERED: ELIQUIS5 MG PO (12:09)
[2017-12-15] MEDS ORDERED: TYLENOL EXTRA500 MG PO (12:09)
[2017-12-15 12:27] LABS: ABSOLUTE EOSINOPHILS 0.1 thou/uL (0.0-0.7); ABSOLUTE LYMPHOCYTES 2.6 thou/uL (0.8-5.3); ABSOLUTE MONOCYTES 0.9 thou/uL (0.0-1.2); ABSOLUTE NEUTROPHILS 4.3 thou/uL (1.6-8.1); BASOPHILS 0.3 %; EOSINOPHILS 1.2 %; HEMATOCRIT 53.1 % (37.0-47.0); HEMOGLOBIN 17.8 gm/dL (12.0-15.0); LYMPHOCYTES 33.3 %; MCH 31.9 pg (26.0-34.0); MCHC 33.5 g/dL (28.0-37.0); MCV 95.3 fL (80.0-100.0); MONOCYTES 11.2 %; MPV 7.8 fl. (7.2-11.1); NUCLEATED RBCS 0 /100WBC; PLATELET COUNT* 259 thou/uL (150-400); RBC 5.58 mil/uL (4.20-5.00); RDW-CV 14.5 % (10.5-14.5); WBC 7.9 thou/uL (4.0-11.0)
[2017-12-15 12:38] LABS: CALCIUM 9.2 mg/dL (8.5-10.1); CREATININE 0.8 mg/dL (0.6-1.3); POTASSIUM 3.5 mmol/L (3.5-5.1)
[2017-12-15 12:39] LABS: APTT 30.6 Seconds (25.0-31.3); INR 1.3; PROTIME 12.7 Seconds (9.20-11.50)
[2017-12-15 12:48] LABS: ALBUMIN 3.2 g/dL (3.4-5.0); TOTAL BILIRUBIN 1.2 mg/dL (<0.1-1.0); TOTAL PROTEIN 7.4 g/dL (6.4-8.2); TROPONIN-I LEVEL 0.07 ng/mL (<0.06)
[2017-12-15 16:25] VITALS: BP 133/79
[2017-12-15 17:00] VITALS: BP 128/68
--- NOTE | 2017-12-15 17:01 | EKG ---
[place] [address] ELECTROCARDIOGRAM REPORT Name: JOYCE SHER Room: [address] IN .R.#: [id number] Admission: 12/15/17 Attend Phys: Valente Tavares MD Discharge: Date of : 43 Report #: [id number] THIS REPORT FOR: //name// 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1945 Requested By: Maureen Lord Order Number: [id number] MD: Abdifatah Prakash Measurements Intervals [place] Rate: 72 P: SD: QRS: 51 QRSD: 86 T: -80 QT: 500 QTc: 548 Interpretive Statements Atrial fibrillation Ventricular bigeminy Low voltage, extremity and precordial leads Probable anteroseptal infarct, old Borderline repolarization abnormality Compared to ECG 09/03/2017 12:45:42 Myocardial infarct finding still present Electronically Signed On 12-15-2017 17:00:50 CDT by Abdifatah Prakash [email or web address] <ELECTRONICALLY SIGNED> By: Abdifatah Prakash MD, [facility] 12/15/17 1700 1206 1206 Abdifatah Prakash MD, [facility] /EPI
[2017-12-15 20:00] VITALS: BP 155/65
[2017-12-16] VITALS: BP 135/48
[2017-12-16 04:00] VITALS: BP 121/76
[2017-12-16 04:06] VITALS: BP 135/48
[2017-12-16 04:54] LABS: ABSOLUTE EOSINOPHILS 0.2 thou/uL (0.0-0.7); ABSOLUTE LYMPHOCYTES 2.4 thou/uL (0.8-5.3); ABSOLUTE MONOCYTES 0.9 thou/uL (0.0-1.2); ABSOLUTE NEUTROPHILS 3.4 thou/uL (1.6-8.1); BASOPHILS 0.5 %; EOSINOPHILS 2.6 %; HEMATOCRIT 50.4 % (37.0-47.0); HEMOGLOBIN 16.7 gm/dL (12.0-15.0); LYMPHOCYTES 34.4 %; MCH 31.8 pg (26.0-34.0); MCHC 33.2 g/dL (28.0-37.0); MCV 95.7 fL (80.0-100.0); MONOCYTES 13.5 %; MPV 8.3 fl. (7.2-11.1); NUCLEATED RBCS 0 /100WBC; PLATELET COUNT* 244 thou/uL (150-400); RBC 5.27 mil/uL (4.20-5.00); RDW-CV 14.8 % (10.5-14.5); WBC 6.9 thou/uL (4.0-11.0)
[2017-12-16 05:12] LABS: CALCIUM 9.1 mg/dL (8.5-10.1); CREATININE 0.7 mg/dL (0.6-1.3); POTASSIUM 3.8 mmol/L (3.5-5.1)
[2017-12-16 09:00] VITALS: BP 183/89
[2017-12-16 09:13] VITALS: BP 135/48
--- NOTE | 2017-12-16 12:02 | EKG ---
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 : 1945 Requested By: Abdifatah Prakash Order Number: [id number] Reading MD: Abdifatah Prakash Measurements Intervals [place] Rate: 64 P: MT: QRS: -18 QRSD: 100 T: -46 QT: 518 QTc: 535 Interpretive Statements Atrial fibrillation with pvc Borderline left axis deviation Anterior infarct, age indeterminate Compared to ECG 12/15/2017 12:06:34 Myocardial infarct finding still present Electronically Signed On 12-16-2017 12:02:28 CDT by Abdifatah Prakash [email or web address] <ELECTRONICALLY SIGNED> By: Abdifatah Prakash MD, [facility] 12/16/17 1202 0913 0913 Abdifatah Prakash MD, [facility] /EPI
[2017-12-16 15:02] VITALS: BP 135/48
[2017-12-16] MEDS ORDERED: KEFLEX250 MG PO (15:02)
--- NOTE | 2017-12-16 15:04 | EKG ---
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1945 Requested By: Abdifatah Prakash Order Number: [id number] Celina MD: Abdifatah Prakash Measurements Intervals [place] Rate: 62 P: SD: QRS: -77 QRSD: 161 T: 96 QT: 537 QTc: 546 Interpretive Statements Atrial fibrillation and V-paced complexes No further analysis attempted due to paced rhythm Compared to ECG 12/16/2017 09:13:03 v paced beats noted Electronically Signed On 12-16-2017 15:04:49 CDT by Abdifatah Prakash [email or web address] <ELECTRONICALLY SIGNED> By: Abdifatah Prakash MD, [facility] 12/16/17 1504 1241 1241 Abdiaftah Prakash MD, [facility] /EPI
--- NOTE | 2017-12-16 17:35 | CARD ---
[address] [address] CARDIAC CATH REPORT Name: JOYCE SHER Room: [address] IN ..#: [id number] Admission: 12/15/17 Attend Phys: Valente Tavares MD Discharge: 12/16/17 Date of : 43 Report #: [id number] THIS REPORT FOR: //name// APPROVED REPORT Study performed: 12/16/2017 09:29:04 Patient Status: In-Patient Room #: 226 Event Personnel: Abdifatah Prakash Memorial Adviser, Debbi Tracy RN Airline Station Agent, Tanesha Champion RN Airline Station Agent, Aly Santos (R) Monitor, Darryl Wilson Scrub Exam: Insertion of Single Chamber Permanent Pacemaker Indications: Sick Sinus Syndrome/Tachy Alex Syndrome The patient is a 72 year-old female with a history of Atrial Fibrillation. Conscious Sedation Start time: 10:19 End Time: 11:20 Fentanyl 25 mcg Versed 3 mg Implanted Devices: MRI compatible single lead ventricular biotronic pacemaker Procedure The patient underwent informed consent. We discussed the details of the procedure including the risks, which include, but not limited to bleeding, infection, vascular damage, cardiac perforation, and pneumothorax. She understood these risks and was willing to proceed. As such, she was brought to the EP/Cardiac Catheterization laboratory in a fasting and sedated state and prepped and draped in a sterile fashion, received IV antibiotics prior to initiation of the procedure and a venogram was performed showing patency of the left axillary vein. The patient underwent conscious sedation, with no related complications. The patient was brought to the EP/Cardiac Catheterization laboratory and the left chest and shoulder were prepped and draped in a sterile manner. During this case, Fluoroscopy and low osmolar contrast were used for imaging. The left subclavian region was infiltrated with 2% Lidocaine subcutaneous anesthesia. A transverse incision was made in the left upper chest cavity. The subcutaneous pocket was formed via [place] [address] CARDIAC CATH REPORT Name: JOYCE SHER Room: [address]#: [id number] Admission: 12/15/17 Attend Phys: Valente Tavares MD Discharge: 12/16/17 Date of : 43 Report #: [id number] venous access was achieved and an introducer sheath was inserted into the left Subclavian vein. Sheaths were positions using the modified Seldinger technique Through the introducer sheaths the ventricular lead wire was positioned in the right atrial appendage and right ventricular apex respectively. Utilizing fluoroscopic guidance, the ventricular lead wire was advanced over the wires and positioned in the right atria and right ventricle respectively. Capturing and sensing thresholds were verified. Electrode Parameters R Wave: 7.5 mv Ventricular Threshold: 0.6 v @ 0.4 ms Ventricular Resistance: 799 ohm Single Chamber The ventricular lead was attached to the appropriate receptacle on the pulse generator and set screws firmly tightened to insure adequate contact and stability. The lead and pulse generator were placed into the subcutaneous pocket. Sharp and sponge counts were confirmed to be correct. At this time the pocket was closed subcutaneously with a 0 Vicryl and the skin was closed with a 4.0 Vicryl. The operative site was dressed in sterile fashion with skin affix and the patient was transferred to the floor in stable condition. Complications The patient tolerated the procedure well and there were no complications associated with the procedure. Conclusion successful placement of a single lead pacemaker <ELECTRONICALLY SIGNED> By: Abdifatah Prakash MD, [facility] 12/16/17 1735 34 1735Dashelly Prakash MD, FACC /INF
--- NOTE | 2017-12-16 17:42 | CON ---
[address] [address] CONSULTATION Name: JOYCE SHER Room: [address] IN M.R.#: [id number] Admission: 12/15/17 Attend Phys: Valente Tavares MD Discharge: 12/16/17 Date of : 43 Report #: [id number] THIS REPORT FOR: //name// CC: Valente Dasilva DO DATE OF SERVICE: 12/15/2017 TYPE OF REPORT: Cardiology consultation. HISTORY OF PRESENT ILLNESS: The patient is a 72-year-old white female who was brought to the Emergency Room today because she was noted to have a slow heart rate. The patient has an extensive past medical history. She has had multiple hospitalizations here at [facility]. She actually saw my nurse practitioner, Phyllis Lora, a year ago when she presented with pain and fullness of the right foot after dropping a TV on it. She was noted to have a slow heart rate at that time. She has been followed by Dr. Quintanilla since that time. She was noted to have Mobitz type 1 AV block. She was subsequently admitted here to [facility] in September of this year with abdominal discomfort. She was noted to be in atrial fibrillation with a slow ventricular response rate. Dr. Quintanilla recommended that she be anticoagulated. The patient was placed on Eliquis but has had difficulty affording the Eliquis. The patient was just seen by Dr. Quintanilla in September. She denied any complaints at that time. She had had no bleeding problems. She had no recurrent atrial fibrillation. She just saw, Ignacio, his nurse practitioner 2 weeks ago. She denied any complaints at that time. She was felt to be in need of a hysterectomy, is recommended she hold her Eliquis for the surgery. She did have thyroid function studies in September that were normal. She had an echocardiogram in September that showed ejection fraction of 55% with left ventricular hypertrophy, left atrial enlargement. No changes were made in her medications. The patient apparently was noted to be in atrial fibrillation with slow ventricular response rate. It is recommended that she continue anticoagulation. She is scheduled to see Dr. Quintanilla in 3 months. The patient stated that at home she has been taking her heart rate is down in the 30s. She went to see Dr. Dasilva today and was noted to be bradycardic. She was sent to the Emergency Room here at [facility] and admitted. She actually denies any significant chest pain, shortness of breath or palpitations. She does feel occasionally lightheaded. She has had no syncope or edema. PAST MEDICAL HISTORY: Otherwise significant for skin graft to her foot after dropping an object on her foot. She has a history of glucose intolerance, hypertension and hyperlipidemia. She has had Mobitz type 1, atrial fibrillation and sinus bradycardia. MEDICATIONS: Consist of Eliquis, aspirin, clonazepam, Lasix for edema, hydrochlorothiazide, Synthroid, [place]isinopril [place] [address] CONSULTATION Name: JOYCE SHER Room: [address] IN M.R.#: [id number] Admission: 12/15/17 Attend Phys: Valente Tavares MD Discharge: 12/16/17 Date of : 43 Report #: [id number] ALLERGIES: She is intolerance to statin drugs. FAMILY HISTORY: Negative for heart disease. SOCIAL HISTORY: She is . She and her live in [place], [place]. She does not smoke, rarely drinks alcohol. REVIEW OF SYSTEMS: She is overweight, being 5 feet 2 inches, 225 pounds. She has no history of stroke, asthma, peptic ulcer disease, bleeding, liver disease, kidney disease, cancer, psychiatric illness or chronic skin conditions. PHYSICAL EXAMINATION: GENERAL: She is a large, elderly female lying in bed. She appeared in no distress. VITAL SIGNS: She had a blood pressure of 140/70 and pulse is 45. She was afebrile. HEENT: She was anicteric. Conjunctiva pink. Mucous members moist. NECK: Veins nondistended. CHEST: Clear to auscultation. CARDIOVASCULAR: Regular bradycardia. No significant murmur. ABDOMEN: Obese. EXTREMITIES: Had no edema. Posterior tibial pulse 2+ bilaterally. SKIN: Warm and dry. NEUROLOGICAL: Nonfocal. RADIOLOGICAL DATA: The ECG on admission today appears to show atrial fibrillation, slow ventricular response rate and occasional PVC. In the doctor's office 2 weeks ago, she apparently was in AFib with a slow ventricular response rate. Her chest x-ray done today showed normal heart size and clear lung barreto. Previous cardiac workup included echocardiogram in September that showed left ventricular hypertrophy, ejection fraction 55%, biatrial enlargement and aortic sclerosis. LABORATORY DATA: Today, sodium 138, creatinine 0.8 and glucose 113. Liver function studies were normal and she had a T4 of 1.73. Glycosylated hemoglobin was done last year, was 5.9. Her white blood cell count 7.9 and hemoglobin 17.8. IMPRESSION AND RECOMMENDATIONS: 1. Atrial fibrillation with slow ventricular response rate. The patient obviously has sick sinus syndrome. She is symptomatic. Recommend a pacemaker. 2. Hypertension. The patient has been on a diuretic and angiotensin-converting enzyme inhibitor. 3. Glucose intolerance. [facility] [address] [place] [address] CONSULTATION Name: JOYCE SHER Room: [address] IN M.R.#: [id number] Admission: 12/15/17 Attend Phys: Valente Tavares MD Discharge: 12/16/17 Date of : 43 Report #: [id number] 4. Hyperlipidemia. The patient cannot tolerate statin drugs. 5. Obesity. <ELECTRONICALLY SIGNED> By: Abdifatah Prakash MD, FACC 12/16/17 1742 1510 2056Dashelly Prakash MD, FACC /nt
== END 2017-12-16 16:00 | disposition home or self-care (01) | DRG 242 ==
LOC: M.ERS 11:59 → M.2W 13:24 → M.TBA-ER 13:24 → M.2W 16:27
PROVIDERS: Personal Emergency Response Attendant; ADMIT Internal Medicine
PROC: 02HK3JZ Insertion of Pacemaker Lead into Right Ventricle, Percutaneous Approach (ICD-10-PCS; principal; 2017-12-16)
PROC: 0JH604Z Insertion of Pacemaker, Single Chamber into Chest Subcutaneous Tissue and Fascia, Open Approach (ICD-10-PCS; principal; 2017-12-16)
DX: I49.5 Sick sinus syndrome (principal); I50.33 Acute on chronic diastolic (congestive) heart failure; I48.92 Unspecified atrial flutter; D68.59 Other primary thrombophilia; I74.9 Embolism and thrombosis of unspecified artery; Z68.41 Body mass index [BMI] 40.0-44.9, adult; E11.9 Type 2 diabetes mellitus without complications; E66.9 Obesity, unspecified; E03.9 Hypothyroidism, unspecified; I10 Essential (primary) hypertension; I44.0 Atrioventricular block, first degree; I44.1 Atrioventricular block, second degree; I48.0 Paroxysmal atrial fibrillation; E78.5 Hyperlipidemia, unspecified; Z88.8 Allergy status to other drugs, medicaments and biological substances; Z79.82 Long term (current) use of aspirin; Z79.01 Long term (current) use of anticoagulants; Z79.899 Other long term (current) drug therapy; Z82.49 Family history of ischemic heart disease and other diseases of the circulatory system

== ENCOUNTER → 2018-10-23 | Outpatient (CLI) | payer OTHER ==
[~2018-10-23] MED LIST changes: +ASPIR 8181 MG PO; +KEFLEX250 MG PO; +LASIX 40 MG TAB40 M2 PO; +LEVOTHYROXINE100 MC1 PO; +LISINOPRIL10 MG PO; +TYLENOL EXTRA500 MG PO
== END ==
LOC: M.RAD 08:49
DX: Z12.31 Encounter for screening mammogram for malignant neoplasm of breast (principal)

== ENCOUNTER → 2019-02-21 | Outpatient (CLI) | payer OTHER | LOC: M.WC 09:55 | DX: E11.622 Type 2 diabetes mellitus with other skin ulcer (principal); L97.821 Non-pressure chronic ulcer of other part of left lower leg limited to breakdown of skin; L97.811 Non-pressure chronic ulcer of other part of right lower leg limited to breakdown of skin; I10 Essential (primary) hypertension; E03.9 Hypothyroidism, unspecified ==

== ENCOUNTER → 2019-02-28 | Outpatient (CLI) | payer OTHER | LOC: M.WC 05:10 | DX: E11.622 Type 2 diabetes mellitus with other skin ulcer (principal); I87.313 Chronic venous hypertension (idiopathic) with ulcer of bilateral lower extremity; L97.812 Non-pressure chronic ulcer of other part of right lower leg with fat layer exposed; L97.821 Non-pressure chronic ulcer of other part of left lower leg limited to breakdown of skin; E03.9 Hypothyroidism, unspecified ==

== ENCOUNTER → 2019-03-09 | Outpatient (CLI) | payer OTHER | LOC: M.WC 10:21 | DX: E11.622 Type 2 diabetes mellitus with other skin ulcer (principal); I87.311 Chronic venous hypertension (idiopathic) with ulcer of right lower extremity; L97.812 Non-pressure chronic ulcer of other part of right lower leg with fat layer exposed; E03.9 Hypothyroidism, unspecified ==

== ENCOUNTER → 2019-03-16 | Outpatient (CLI) | payer OTHER | LOC: M.WC 04:54 | DX: E11.622 Type 2 diabetes mellitus with other skin ulcer (principal); I87.313 Chronic venous hypertension (idiopathic) with ulcer of bilateral lower extremity; L97.812 Non-pressure chronic ulcer of other part of right lower leg with fat layer exposed; L97.821 Non-pressure chronic ulcer of other part of left lower leg limited to breakdown of skin; E03.9 Hypothyroidism, unspecified; I10 Essential (primary) hypertension ==

== ENCOUNTER → 2019-03-23 | Outpatient (CLI) | payer OTHER | LOC: M.WC 01:48 | DX: E11.622 Type 2 diabetes mellitus with other skin ulcer (principal); I87.313 Chronic venous hypertension (idiopathic) with ulcer of bilateral lower extremity; L97.812 Non-pressure chronic ulcer of other part of right lower leg with fat layer exposed; L97.821 Non-pressure chronic ulcer of other part of left lower leg limited to breakdown of skin; E03.9 Hypothyroidism, unspecified ==

== ENCOUNTER → 2019-03-30 | Outpatient (CLI) | payer OTHER | LOC: M.WC 04:38 | DX: E11.622 Type 2 diabetes mellitus with other skin ulcer (principal); I87.313 Chronic venous hypertension (idiopathic) with ulcer of bilateral lower extremity; L97.811 Non-pressure chronic ulcer of other part of right lower leg limited to breakdown of skin; L97.821 Non-pressure chronic ulcer of other part of left lower leg limited to breakdown of skin; E03.9 Hypothyroidism, unspecified ==

== ENCOUNTER 2019-04-03 12:17 | Inpatient (IN) | payer OTHER ==
[~2019-04-03] VITALS: Ht 157.5 cm; Wt 109.2 kg
--- NOTE | ~2019-04-03 | CON ---
[address] [address] CONSULTATION Name: NIKKYJOYCE K Room: [address] ADM IN M.R.#: [id number] Admission: 04/03/19 Attend Phys: Valente Tavares MD Discharge: Date of : 43 Report #: [id number] THIS REPORT FOR: //name// CC: Valente Dasilva DO DATE OF SERVICE: 04/08/2019 HEMATOLOGY CONSULT HISTORY OF PRESENT ILLNESS: The patient is being seen in consultation at the request of Dr. Tavares for evaluation of a possible hypercoagulable state. Records in [facility] note, the patient was unaware of any prior blood clotting events including no blood clots in her lower legs, blood clots to her lungs, blood clots to the organs of her abdomen, heart attack or stroke. CT scan of her chest on 04/07/2019 mentioned abnormal flow in the left lower lobe pulmonary arteries tapering to occlusion and no flow was detected in the caudal left lower lobe pulmonary arteries, but a discrete filling defect was not identified. Radiologist felt that there were no large emboli, but there was a filling defect in small inferior left lower lobe on 04/03/2019. Note that there was a moderate left pleural effusion and atelectasis or infiltrate on that same CT. In 09/2017, the spleens blood flow was abnormal demonstrating abnormal enhancement and has significant region of decreased enhancement suggesting a large infarct. In addition, there was a decreased enhancement of wedge-shaped configuration involving the left kidney suggesting infarct. The patient's admission to the hospital was due to dyspnea on exertion. She has history of cardiac disease with atrial fibrillation/flutter, with episodes of bradycardia and she has required a pacemaker in the past. She is a never smoker. She had one episode of "touch of pneumonia" 2-3 years ago that did not require admission to the hospital. She was aware that she had "thick blood", and she said on one occasion (earlier admission to this hospital?), she required blood removal. For the past 1 month or so, she has had such severe swelling in her legs that they have required wrapping. She has not had any fever, rigors or drenching sweats. She denies spontaneous epistaxis, gum bleeding, hemoptysis, hematemesis, hematuria, vaginal bleeding or melena, but she has had occasional small volume bright red blood per rectum when she gets "nervous." She typically passes stool 2-3 times per day without straining. No one in her family has a history of blood clotting events as far as she knows. PAST MEDICAL HISTORY: 2, para 2 (both daughters), cardiac arrhythmias (see above), requiring pacemaker placement, obstructive sleep apnea, [place] [address] CONSULTATION Name: JOYCE SHER Wiley Room: [address] IN .R.#: [id number] Admission: 04/03/19 Attend Phys: Valente Tavares MD Discharge: Date of : 43 Report #: [id number] used CPAP device. Other diagnoses as mentioned in the LUMMI. FAMILY HISTORY: The patient had four sisters, one brother. SOCIAL HISTORY: She is and lives with her . She is a never smoker and she has not drank alcohol for many, many years at all. REVIEW OF SYSTEMS: The patient is quite inactive. She does some housework chores, does drive a car, but she and her leave their home very infrequently. She denies headache, visual changes. No history of cataracts or glaucoma. No purulent or watery nasal discharge, no sinus infections. She has had episodes of what sound like orthopnea at home with PND, but she does not sleep in the chair. She has fallen at home. She typically does not have nocturia, but sometimes has to get up once. She is right handed. Does not have any arthralgias. She denies skin cancer or malignant moles. PHYSICAL EXAMINATION: GENERAL: Reveals a pleasant lady who as you recall for her own past medical history is not very good. She has no resting tachypnea, but she is using supplemental oxygen. She is sitting in a bedside chair with her feet down, and they are purple and cool, but not tender to touch. Both of her lower legs were wrapped with Av-type bandages. In the sitting position, the patient had no tachypnea. HEENT: Pupils are equal. Sclerae were nonicteric. Extraocular movements are intact without nystagmus. Nasal passages were clear. Oropharynx feels fairly good dentition although several teeth had been extracted in the past. The buccal mucosa appears healthy. I saw no oral ulcers or masses. She could open her mouth widely. The tongue was normally papillated and protruded midline to command. NECK: Soft. There were no tonsillar abnormalities that I can see. She had diminished carotid upstrokes without any thrills. I did not feel any cervical lymphadenopathy and there was no obvious thyromegaly or JVD. She had no supraclavicular, infraclavicular or axillary adenopathy. LUNGS: She had a small dressing on the left lower lung area with thoracentesis has been done recently. There were absent air movement sounds in the lower third of her left lung posteriorly. The right lung was clear without rales or wheezes or pleural friction rub. CARDIOVASCULAR: She had mild lumbosacral edema and excess adipose tissue. Anteriorly, her pacemaker was palpable in the left upper chest wall. Cardiac rate was normal. The rhythm was regular. I heard grade 1 murmur over the aortic valve area, but no murmur over the lower left sternal border. ABDOMEN: In the sitting position, her abdomen revealed massive obesity, was nontender to palpation. There was lower abdominal wall edema. EXTREMITIES: Her upper extremities revealed Muehrcke[place] [address] CONSULTATION Name: JOYCE SHER Room: [address] IN [facility].#: [id number] Admission: 04/03/19 Attend Phys: Valente Tavares MD Discharge: Date of : 43 Report #: [id number] acrocyanosis and palmar erythema. MEDICAL DATA: I reviewed the CT scans that were mentioned in the LUMMI and I reviewed Dr. Tavares's history and physical note and I have reviewed the progress note by Dr. Mario Patel from yesterday. LABORATORY DATA: Show hemoglobin levels that have been elevated since 01/2017 when the hemoglobin was 17.1. Highest hemoglobin was 18.7 on the day of admission. She has had elevated MCVs since the day of admission when the MCV was 103, but in 11/2017, it was 95.7. White blood cell counts and platelet counts for the most part have been normal. Serum erythropoietin level measured on one occasion was elevated at 35.2 (normal ____ to 18.5 nneka international units/mL. Total bilirubins have been elevated, but were normal in 2017 and the level on 04/05 was 1.5. Kidney function shows creatinine is ranging from 1.3, but from 1.2-1.5 during this hospital stay. Statements about pulmonary emboli, splenic infarcts and left renal infarct are all less inconclusive in their wording. For that reason, I am hesitate to undertake an extensive hypercoagulation workup. I think it is reasonable to look into the possibility of a myeloproliferative disorder because of the increase in her hemoglobin and hematocrit with possible thrombotic events. She has macrocytosis. Laboratory studies can be done. I think the traditional hypercoagulation workup is needed in this 74-year-old lady who never before had had blood clotting events. We will follow up these laboratory tests and then determine whether any additional testing is needed. By: [id number] Hernandez MD /anh
[2019-04-03 12:52] LABS: ABSOLUTE EOSINOPHILS 0.1 thou/uL (0.0-0.7); ABSOLUTE LYMPHOCYTES 1.7 thou/uL (0.8-5.3); ABSOLUTE MONOCYTES 0.9 thou/uL (0.0-1.2); BASOPHILS 0.3 %; EOSINOPHILS 0.9 %; HEMATOCRIT 55.9 % (37.0-47.0); HEMOGLOBIN 18.7 gm/dL (12.0-15.0); LYMPHOCYTES 25.2 %; MCH 34.5 pg (26.0-34.0); MCHC 33.5 g/dL (28.0-37.0); NUCLEATED RBCS 0 /100WBC; PLATELET COUNT* 218 thou/uL (150-400); POLYS 59.6 %; RBC 5.43 mil/uL (4.20-5.00); RDW-CV 17.1 % (10.5-14.5); WBC 6.7 thou/uL (4.0-11.0)
[2019-04-03 13:04] LABS: APTT 29.6 Seconds (25.0-31.3); INR 1.7; PROTIME 16.9 Seconds (9.20-11.50)
[2019-04-03 13:06] LABS: CALCIUM 9.1 mg/dL (8.5-10.1); CREATININE 1.3 mg/dL (0.6-1.3); POTASSIUM 3.9 mmol/L (3.5-5.1)
[2019-04-03 13:19] LABS: TOTAL BILIRUBIN 3.2 mg/dL (<0.1-1.0); TOTAL PROTEIN 7.6 g/dL (6.4-8.2); TROPONIN-I LEVEL 0.1 ng/mL (<0.06)
[2019-04-03 15:07] VITALS: BP 111/68
[2019-04-03 15:45] VITALS: BP 120/77
--- NOTE | 2019-04-03 16:32 | EKG ---
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1945 Requested By: Mitch Echols Order Number: [id number] MD: Josafat Bishop Measurements Intervals [place] Rate: 61 P: [place]: QRS: -65 QRSD: 149 T: 113 QT: 487 QTc: 491 Interpretive Statements Atrial fibrillation alternates with paced beats Compared to ECG 12/16/2017 12:41:05 Intraventricular conduction delay persists with paced beats Electronically Signed On 04-03-2019 16:32:21 CDT by Josafat Bishop [email or web address] <ELECTRONICALLY SIGNED> By: Josafat Bishop MD, [facility] 04/03/19 1632 1249 1249 Josafat Bishop MD, [facility] /EPI
[2019-04-03 20:30] VITALS: BP 101/67
[2019-04-04 00:38] VITALS: BP 126/83
[2019-04-04 05:00] VITALS: BP 88/65
[2019-04-04 05:04] LABS: ABSOLUTE LYMPHOCYTES 0.7 thou/uL (0.8-5.3); ABSOLUTE MONOCYTES 0.1 thou/uL (0.0-1.2); ABSOLUTE NEUTROPHILS 4.2 thou/uL (1.6-8.1); BASOPHILS 0.1 %; HEMOGLOBIN 17.6 gm/dL (12.0-15.0); LYMPHOCYTES 14.4 %; MCH 34.3 pg (26.0-34.0); MCHC 33.2 g/dL (28.0-37.0); MCV 103.1 fL (80.0-100.0); MONOCYTES 2.7 %; MPV 7.8 fl. (7.2-11.1); NUCLEATED RBCS 0 /100WBC; PLATELET COUNT* 190 thou/uL (150-400); POLYS 82.8 %; RBC 5.14 mil/uL (4.20-5.00)
[2019-04-04 05:11] LABS: CALCIUM 8.8 mg/dL (8.5-10.1); CREATININE 1.4 mg/dL (0.6-1.3); POTASSIUM 3.7 mmol/L (3.5-5.1)
[2019-04-04 08:00] VITALS: BP 138/70
[2019-04-04 12:00] VITALS: BP 110/54
[2019-04-04 16:00] VITALS: BP 112/64
--- NOTE | 2019-04-04 16:39 | 2DMMODE ---
[place] [address] 2 D/M-MODE ECHOCARDIOGRAM Name: JOYCE SHER Room: [address] IN [facility]#: [id number] Admission: 04/03/19 Attend Phys: Valente Tavares, Discharge: Date of : 43 Date of Service: 04/04/19 1639 Report #: [id number] THIS REPORT FOR: //name// APPROVED REPORT Study performed: 04/04/2019 14:59:56 EXAM: Comprehensive 2D, Doppler, and color-flow Echocardiogram Patient Location: In-Patient Room #: [facility] Status: routine BSA: 2.10 HR: 80 bpm BP: 110/54 mmHg Rhythm: NSR Other Information Study Quality: Good Indications Congestive Heart Failure Pleural Effusion 2D Dimensions IVSd: 11.63 (7-11mm) LVOT Diam: 18.43 (18-24mm) LVDd: 43.50 mm PWd: 11.77 (7-11mm) Ascending Ao: 29.13 (22-36mm) LVDs: 24.28 (25-40mm) Aortic Root: 27.70 mm Volumes Left Atrial Volume (Systole) LA ESV Index: 31.70 mL/m2 Aortic Valve AoV Peak Juanito.: 3.60 m/s AO Peak Gr.: 51.88 mmHg LVOT Max P.30 mmHg AO Mean Gr.: 31.76 mmHg LVOT Mean P.05 mmHg LVOT Max V: 0.91 m/s AO V2 VTI: 80.40 cm LVOT Mean V: 0.69 m/s SIS (VTI): 0.66 cm2 LVOT V1 VTI: 20.00 cm TDI Medial E' Juanito.: 0.08 m/[place] [address] 2 D/M-MODE ECHOCARDIOGRAM Name: JOYCE SHER Room: [address] IN ..#: [id number] Admission: 04/03/19 Attend Phys: Valente Tavares, Discharge: Date of : 43 Date of Service: 04/04/19 1639 Report #: [id number] Pulmonary Valve PV Peak Juanito.: 0.79 m/s PV Peak Gr.: 2.52 mmHg Tricuspid Valve RAP Estimate: 5.00 mmHg TR Peak Gr.: 15.64 mmHg RVSP: 20.00 mmHg PA Pressure: 20.00 mmHg Left Ventricle The left ventricle is normal size. Regional wall motion abnormalities are noted with apical hypo-akinesis There is normal left ventricular wall thickness. Left ventricular systolic function is mildly decreased. LVEF is 50%. This study is not technically sufficient to allow evaluation of the LV diastolic function due to atrial fibrillation. Right Ventricle The right ventricle is normal size. The right ventricular systolic function is normal. Pacemaker lead is present in the right ventricle. Atria Left atrium is mildly dilated. Right atrium is mildly dilated. Aortic Valve Severe aortic valve sclerosis. No aortic regurgitation is present. Moderate to severe aortic stenosis. Mitral Valve There is mitral annular calcification. Trace mitral regurgitation. No evidence of mitral valve stenosis. Tricuspid Valve The tricuspid valve is normal in structure. Mild tricuspid regurgitation. No pulmonary hypertension. Pulmonic Valve The pulmonary valve is normal in structure. Trace pulmonic regurgitation. Great Vessels The aortic root is normal in size. IVC is normal in size and collapses >50% with inspiration. Pericardium There is no pericardial [place] [address] 2 D/M-MODE ECHOCARDIOGRAM Name: JOYCE SHER Room: [address] IN .R.#: [id number] Admission: 04/03/19 Attend Phys: Valente Tavares, Discharge: Date of : 43 Date of Service: 04/04/19 1639 Report #: [id number] effusion. <Conclusion> The left ventricle is normal size. There is normal left ventricular wall thickness. Left ventricular systolic function is mildly decreased. LVEF is 50%. The right ventricle is normal size. Left atrium is mildly dilated. Right atrium is mildly dilated. Severe aortic valve sclerosis. No aortic regurgitation is present. Moderate to severe aortic stenosis. There is mitral annular calcification. The tricuspid valve is normal in structure. IVC is normal in size and collapses >50% with inspiration. There is no pericardial effusion. Regional wall motion abnormalities are noted with apical hypo-akinesis Pacemaker lead is present in the right ventricle. Left pleural effusion. <ELECTRONICALLY SIGNED> By: Josafat Bishop MD, FACC 04/04/19 1639 1639 1639 Josafat Bishop MD, FACC /INF
[2019-04-04 20:15] VITALS: BP 124/53
[2019-04-05] VITALS: BP 122/57
[2019-04-05 04:00] VITALS: BP 107/63
[2019-04-05 08:00] VITALS: BP 154/92
--- NOTE | 2019-04-05 10:48 | CON ---
[address] [address] CONSULTATION Name: JOYCE SHER Room: [address] IN M.R.#: [id number] Admission: 04/03/19 Attend Phys: Valente Tavares MD Discharge: Date of : 43 Report #: [id number] THIS REPORT FOR: //name// CC: Valente Longoliveriojuanjo DATE OF SERVICE: 04/04/2019 REASON FOR EVALUATION: Shortness of breath, pleural effusion for further evaluation. HISTORY OF PRESENT ILLNESS: The patient is a pleasant 74-year-old white woman who was brought into the Emergency Room with worsening shortness of breath. The patient states over the last one month, she has been complaining of progressive shortness of breath with any activity. She has not been on oxygen recently. She has associated orthopnea. She has to sit up at least 45 degrees, otherwise has severe shortness of breath. Also, over the last one month has been complaining of worsening lower extremity swelling associated with ulcers. She denies any chest pain, denies significant cough, mucus production or hemoptysis. Since admission, the patient underwent a CT angiogram of the chest, which I have personally reviewed and it shows significant moderate left pleural effusion; however, with smaller right pleural effusion, there were flow artifact in the left main pulmonary artery with a small filling defect in the left lower lobe and atelectatic lung. Her proBNP was elevated above 2700. Troponin of 0.7. Other blood work: White blood cell count 5000, hemoglobin 17.6. Platelet 190. Her chemistry Chem-7; creatinine 1.4. Coagulation noted her D-dimer, which was checked was 3.4, PT 16.9. PAST MEDICAL HISTORY: Significant for skin graft, hypertension, hyperlipidemia, atrial fibrillation, history of sinus bradycardia, hypothyroidism, and previous history of thromboembolism. PAST SURGICAL HISTORY: Skin graft as above. HOME MEDICATIONS: Reviewed. ALLERGIES: None. FAMILY HISTORY: No family history of asthma or heart disease. SOCIAL HISTORY: , lifelong nonsmoker, lives in [place]. No alcohol abuse. CURRENT MEDICATIONS: Reviewed and include the following: Lisinopril 10 mg, vitamin D3, hydrochlorothiazide 12.5, Lasix 40 mg daily, Levoxyl 100 [place] [address] CONSULTATION Name: NIKKYJOYCE K Room: [address] IN [facility]#: [id number] Admission: 04/03/19 Attend Phys: Valente Tavares MD Discharge: Date of : 43 Report #: [id number] and apixaban 5 mg daily REVIEW OF SYSTEMS: A 14-point review of systems is as above. CARDIOVASCULAR: Lower extremity swelling, orthopnea. Denies chest pain. PULMONARY: As above, shortness of breath on minimal exertion, worsening over the last few days. SKIN: Skin ulcers, worse on the right leg. She has history of palpitation as well. Otherwise, as above. PHYSICAL EXAMINATION: GENERAL: The patient is pleasant, looks anxious. She has mild shortness of breath with conversation; however, on room air. VITAL SIGNS: She is afebrile, T-max was 36.4. Heart rate is 98, respiratory rate is 18, blood pressure 119/54, O2 saturation currently on room air, oxygen saturation is adequate. HEAD AND NECK: Neck is supple. Eyes nonicteric. Mucous membranes are white and clear. NECK: No lymph node enlargement. CHEST: She has decreased breath sounds at the left lung base, otherwise no wheezing. Good air movement. Vesicular breath sounds. CARDIOVASCULAR: Normal S1, S2. No murmur, no added sounds. ABDOMEN: Soft, nontender, obese. EXTREMITIES: She has severe lower extremity swelling and edema. She has dressing over both her legs up to the knee because of her leg ulcers. PSYCHIATRIC: Looks anxious. NEUROLOGIC: No focal deficit. LABORATORY AND OTHER DATABASE: As above. Blood cultures are pending. CTA as above is suspicious for small PEs in the left lower lobe; however, this is atelectatic with compressive effusion. Please note in September 2017, at that time, the patient had a CT of the abdomen in 09/2017, which showed mild ascites. She had echo in 09/2017 which showed LVH, normal ejection fraction, normal pulmonary artery systolic pressure. ASSESSMENT AND PLAN: 1. Shortness of breath, acute on chronic. The patient presented with lower extremity swelling, orthopnea. Her previous EKG shows a concentric LVH and grade 1 diastolic dysfunction. At this time, suspect heart failure with preserved ejection fraction; however, agree with obtaining an echocardiogram. 2. Previous history of thromboembolism. Differential diagnoses include pulmonary embolism. At this time, her CT was suspicious for new PE with associated effusion. At this time, the patient is anticoagulated. We will hold off anticoagulation, especially with the suspicion with acute onset PE, we will obtain lower extremity Dopplers. If her D-dimer is elevated and if there is [address] [address] CONSULTATION Name: JOYCE SHER Room: [address] IN M.R.#: [id number] Admission: 04/03/19 Attend Phys: Valente Tavares MD Discharge: Date of : 43 Report #: [id number] still evidence of clot burden may need IVC filter; however, we will hold on that until further evaluation, especially if the patient has lower extremity swelling and ulcer, IVC filter may worsen lower extremity swelling. Consideration and risks and benefits of evaluation need to be considered carefully and closely. Other alternatives need to increase her anticoagulation with patients who fail Eliquis may be considered for low molecular weight heparin. 3. Hypothyroidism. Continue with treatment with Levoxyl. At this time need to consider evaluation for obstructive sleep apnea when more stable as well. The patient is currently on empiric antibiotics, which we will continue at this time and she already received Lasix. We will obtain chest x-ray in the morning. This was discussed with her nurse and Dr. Mejía will be paged to discuss further. There is no indication for steroid treatment. Recommend to discontinue steroids. <ELECTRONICALLY SIGNED> By: Hermelinda Cain MD 04/05/19 1048 1608 2346Asem Joey Cain MD /nt
[2019-04-05 15:46] LABS: ABSOLUTE LYMPHOCYTES 0.8 thou/uL (0.8-5.3); ABSOLUTE MONOCYTES 1.8 thou/uL (0.0-1.2); BASOPHILS 0.2 %; EOSINOPHILS 0.1 %; HEMATOCRIT 56.5 % (37.0-47.0); HEMOGLOBIN 18.5 gm/dL (12.0-15.0); LYMPHOCYTES 4.8 %; MCH 34.3 pg (26.0-34.0); MCHC 32.7 g/dL (28.0-37.0); MCV 105.1 fL (80.0-100.0); MONOCYTES 10.2 %; MPV 7.9 fl. (7.2-11.1); NUCLEATED RBCS 0 /100WBC; PLATELET COUNT* 162 thou/uL (150-400); POLYS 84.7 %; RBC 5.38 mil/uL (4.20-5.00); RDW-CV 17.5 % (10.5-14.5)
[2019-04-05 15:51] LABS: WBC 17.7 thou/uL (4.0-11.0)
[2019-04-05 16:00] VITALS: BP 110/54; BP 172/78
[2019-04-05 16:47] LABS: ALBUMIN 2.7 g/dL (3.4-5.0); CALCIUM 8.7 mg/dL (8.5-10.1); CREATININE 1.5 mg/dL (0.6-1.3); POTASSIUM 3.7 mmol/L (3.5-5.1); TOTAL BILIRUBIN 1.5 mg/dL (<0.1-1.0); TOTAL PROTEIN 7.1 g/dL (6.4-8.2)
[2019-04-05 20:00] VITALS: BP 101/53
[2019-04-06] VITALS: BP 116/70
[2019-04-06 04:00] VITALS: BP 141/79
[2019-04-06 05:04] LABS: ABSOLUTE LYMPHOCYTES 1.1 thou/uL (0.8-5.3); ABSOLUTE MONOCYTES 1.2 thou/uL (0.0-1.2); ABSOLUTE NEUTROPHILS 11.4 thou/uL (1.6-8.1); BASOPHILS 0.1 %; EOSINOPHILS 0.1 %; HEMATOCRIT 57.1 % (37.0-47.0); HEMOGLOBIN 18.2 gm/dL (12.0-15.0); LYMPHOCYTES 8.3 %; MCH 33.7 pg (26.0-34.0); MCV 105.3 fL (80.0-100.0); MONOCYTES 8.6 %; MPV 7.5 fl. (7.2-11.1); NUCLEATED RBCS 0 /100WBC; PLATELET COUNT* 169 thou/uL (150-400); POLYS 82.9 %; RBC 5.42 mil/uL (4.20-5.00); RDW-CV 17.7 % (10.5-14.5); WBC 13.8 thou/uL (4.0-11.0)
[2019-04-06 05:29] LABS: CALCIUM 8.7 mg/dL (8.5-10.1); CREATININE 1.4 mg/dL (0.6-1.3); POTASSIUM 3.8 mmol/L (3.5-5.1); PREALBUMIN 12.3 mg/dL (18.0-35.7)
[2019-04-06 07:21] LABS: INR 1.5; PROTIME 15.1 Seconds (9.20-11.50)
[2019-04-06 07:50] VITALS: BP 113/69
[2019-04-06 12:15] VITALS: BP 93/55
[2019-04-06 12:20] LABS: URINE BILIRUBIN NEGATIVE (Negative); URINE BLOOD 3+ (Negative); URINE CLARITY SL CLOUDY; URINE COLOR YELLOW; URINE GLUCOSE-RANDOM NEGATIVE (Negative); URINE KETONES NEGATIVE (Negative); URINE LEUKOCYTES-REFLEX NEGATIVE (Negative); URINE NITRITE-REFLEX NEGATIVE (Negative); URINE PROTEIN NEGATIVE (Negative); URINE UROBILINOGEN 0.2 E.U./dl (0.2-1.0)
[2019-04-06 12:28] LABS: SQUAMOUS 0-3 Few /LPF (0-3); URINE RBC >20 Many /HPF (0-2); URINE WBC-REFLEX None Seen /HPF (0-5)
[2019-04-06 12:29] LABS: CASTS None Seen /LPF (None Seen); CRYSTALS None Seen /LPF (None Seen); MUCUS 0-3 Light strn/LPF (None Seen)
[2019-04-06 12:47] LABS: SOURCE PLEURAL FLUID
[2019-04-06 12:48] LABS: CLARITY CLOUDY; TOTAL VOLUME 800 ml
[2019-04-06 12:50] LABS: BF RBC 5923 /mm3; TOTAL CELL COUNT 522 /mm3
[2019-04-06 15:28] VITALS: BP 104/54
[2019-04-06 16:35] LABS: BF LYMPHOCYTES 48 %; BF MONOCYTES 7 %; BF POLYS 45 %; BF TISSUE 53 /100 WBC
[2019-04-06 20:00] VITALS: BP 101/41
[2019-04-07] VITALS: BP 81/49
[2019-04-07 04:00] VITALS: BP 119/67
[2019-04-07 04:46] LABS: HEMATOCRIT 55.9 % (37.0-47.0); HEMOGLOBIN 18.4 gm/dL (12.0-15.0); MCH 34.2 pg (26.0-34.0); MCHC 32.9 g/dL (28.0-37.0); MCV 104.2 fL (80.0-100.0); MPV 8.1 fl. (7.2-11.1); NUCLEATED RBCS 0 /100WBC; PLATELET COUNT* 182 thou/uL (150-400); RBC 5.36 mil/uL (4.20-5.00); RDW-CV 17.3 % (10.5-14.5); WBC 7.8 thou/uL (4.0-11.0)
[2019-04-07 04:59] LABS: CALCIUM 8.5 mg/dL (8.5-10.1); CREATININE 1.3 mg/dL (0.6-1.3); POTASSIUM 3.7 mmol/L (3.5-5.1)
[2019-04-07 05:23] LABS: ABSOLUTE EOSINOPHILS 0.2 thou/uL (0.0-0.7); ABSOLUTE LYMPHOCYTES 1.3 thou/uL (0.8-5.3); ABSOLUTE MONOCYTES 0.6 thou/uL (0.0-1.2); ABSOLUTE NEUTROPHILS 5.6 thou/uL (1.6-8.1); ANISOCYTOSIS 1+; PLATELET ESTIMATE ADEQUATE; TOXIC GRANULATION 1+
[2019-04-07 07:45] VITALS: BP 121/74
[2019-04-07 11:11] LABS: BODY FLUID AMYLASE 24 U/L (()); BODY FLUID LDH 135 IU/L (()); BODY FLUID PROTEIN 1.9 g/dL (())
[2019-04-07 15:10] VITALS: BP 97/58
[2019-04-07 19:02] VITALS: BP 119/65
[2019-04-07 20:00] VITALS: BP 93/55
[2019-04-08] VITALS: BP 101/67
[2019-04-08 04:18] LABS: ABSOLUTE EOSINOPHILS 0.2 thou/uL (0.0-0.7); ABSOLUTE LYMPHOCYTES 0.9 thou/uL (0.8-5.3); ABSOLUTE NEUTROPHILS 4.3 thou/uL (1.6-8.1); BASOPHILS 0.2 %; EOSINOPHILS 3.2 %; HEMATOCRIT 52.6 % (37.0-47.0); HEMOGLOBIN 17.2 gm/dL (12.0-15.0); MCH 34.2 pg (26.0-34.0); MCHC 32.6 g/dL (28.0-37.0); MCV 104.9 fL (80.0-100.0); MONOCYTES 15.5 %; MPV 8.1 fl. (7.2-11.1); NUCLEATED RBCS 0 /100WBC; PLATELET COUNT* 167 thou/uL (150-400); POLYS 67.1 %; RBC 5.01 mil/uL (4.20-5.00); WBC 6.5 thou/uL (4.0-11.0)
[2019-04-08 04:35] LABS: CALCIUM 8.4 mg/dL (8.5-10.1); CREATININE 1.2 mg/dL (0.6-1.3); POTASSIUM 3.7 mmol/L (3.5-5.1)
[2019-04-08 07:45] VITALS: BP 132/69
[2019-04-08 11:51] LABS: SOURCE THORACENTESIS
[2019-04-08 11:52] LABS: SOURCE THORACENTESIS
[2019-04-08 12:00] VITALS: BP 109/57
[2019-04-08 16:00] VITALS: BP 94/51
[2019-04-08 20:00] VITALS: BP 107/47
[2019-04-09] VITALS: BP 117/69
[2019-04-09 00:44] VITALS: BP 117/69
[2019-04-09 04:00] VITALS: BP 107/63
[2019-04-09 07:55] VITALS: BP 110/73
[2019-04-09 11:30] VITALS: BP 101/53
[2019-04-09 12:08] LABS: BODY FLUID PH 7.7 (Not Estab.)
[2019-04-09 13:08] VITALS: BP 110/73
[2019-04-09] MEDS ORDERED: KLOR-CON 1010 MEQ PO (15:26)
--- NOTE | 2019-04-10 13:07 | PATH ---
[address] [address] PATHOLOGY RPT PROCEDURE Name: JOYCE SHER Room: [address]#: [id number] Admission: 04/03/19 Date of : 43 Discharge: 04/09/19 Report #: [id number] Path Case #: [id number] Note [facility] Accession Number: [id number] TESTS RESULT FLAG UNITS REF RANGE LAB Clinician Provided Cytology Information No. of containers..01 Other (Miscellaneous) Source: LT PLEURAL FLUID DIAGNOSIS: LT PLEURAL FLUID NEGATIVE FOR MALIGNANT CELLS. REACTIVE MESOTHELIAL CELLS AND FEW INFLAMMATORY CELLS. THIS INTERPRETATION INCLUDES EVALUATION OF A CELL BLOCK. Signed out by: 02 Jeremi Vivar MD, Pathologist NPI- [id number] Performed by: 01 Joyce Bhakta, Stave Block Roller ([facility]) Gross description: 01 34 ML, YELLOW, CLOUDY /LCS FLAG LEGEND: L-Low Normal,H-High Normal,LL-Alert Low,HH-Alert High <-Panic Low,>-Panic High,A-Abnormal,AA-Critical Abnormal Performed at: [address] [place] [address] Gene Garcia MD, [address] [place] [address] [facility], [place] [address] Jeremi Vivar MD, Specimen Comment: A courtesy copy of this report has been sent to Specimen Comment: [phone], . Specimen Comment: Report sent to / DR LOTT Specimen Comment: A duplicate report has been generated due to demographic updates. Performed at: [address], [place], [place] [id number] MD Gene Garcia MD Phone: [phone]
== END 2019-04-09 17:05 | disposition home health service (06) | DRG 177 ==
LOC: M.ERS 12:17 → M.TBA-ER 13:17 → M.2W 13:17
PROVIDERS: Family Medicine; ADMIT Internal Medicine
DX: J15.6 Pneumonia due to other Gram-negative bacteria (principal); J96.01 Acute respiratory failure with hypoxia; I26.99 Other pulmonary embolism without acute cor pulmonale; I50.33 Acute on chronic diastolic (congestive) heart failure; Z68.41 Body mass index [BMI] 40.0-44.9, adult; I35.0 Nonrheumatic aortic (valve) stenosis; R31.9 Hematuria, unspecified; D75.1 Secondary polycythemia; E11.9 Type 2 diabetes mellitus without complications; I11.0 Hypertensive heart disease with heart failure; E66.01 Morbid (severe) obesity due to excess calories; E03.9 Hypothyroidism, unspecified; E78.5 Hyperlipidemia, unspecified; Z79.84 Long term (current) use of oral hypoglycemic drugs; I48.0 Paroxysmal atrial fibrillation; Z88.8 Allergy status to other drugs, medicaments and biological substances; Z79.899 Other long term (current) drug therapy; Z82.49 Family history of ischemic heart disease and other diseases of the circulatory system; Z79.01 Long term (current) use of anticoagulants

== ENCOUNTER → 2019-04-13 | Outpatient (CLI) | payer OTHER | LOC: M.WC 04:49 | DX: E11.622 Type 2 diabetes mellitus with other skin ulcer (principal); I87.311 Chronic venous hypertension (idiopathic) with ulcer of right lower extremity; L97.812 Non-pressure chronic ulcer of other part of right lower leg with fat layer exposed; E03.9 Hypothyroidism, unspecified ==

== ENCOUNTER 2019-04-20 10:53 | Inpatient (IN) | payer OTHER ==
[~2019-04-20] VITALS: Ht 152.4 cm; Wt 119.1 kg
[2019-04-20 10:58] VITALS: BP 128/81
[2019-04-20 11:20] LABS: ABSOLUTE LYMPHOCYTES 1.2 thou/uL (0.8-5.3); ABSOLUTE MONOCYTES 0.8 thou/uL (0.0-1.2); ABSOLUTE NEUTROPHILS 3.8 thou/uL (1.6-8.1); BASOPHILS 0.4 %; EOSINOPHILS 0.8 %; HEMATOCRIT 53.8 % (37.0-47.0); HEMOGLOBIN 18.3 gm/dL (12.0-15.0); LYMPHOCYTES 21.1 %; MCH 34.5 pg (26.0-34.0); MCHC 33.9 g/dL (28.0-37.0); MCV 101.8 fL (80.0-100.0); MONOCYTES 13.2 %; MPV 7.8 fl. (7.2-11.1); NUCLEATED RBCS 0 /100WBC; PLATELET COUNT* 186 thou/uL (150-400); POLYS 64.5 %; RBC 5.29 mil/uL (4.20-5.00); RDW-CV 16.7 % (10.5-14.5); WBC 5.9 thou/uL (4.0-11.0)
[2019-04-20 11:41] LABS: PROTIME 20.1 Seconds (9.20-11.50)
[2019-04-20 11:52] LABS: CREATININE 1.4 mg/dL (0.6-1.3); POTASSIUM 4.3 mmol/L (3.5-5.1)
[2019-04-20 12:07] LABS: ALBUMIN 2.9 g/dL (3.4-5.0); TOTAL BILIRUBIN 3.1 mg/dL (<0.1-1.0); TOTAL PROTEIN 7.3 g/dL (6.4-8.2); TROPONIN-I LEVEL 0.1 ng/mL (<0.06)
[2019-04-20 12:17] LABS: BE 2.3 mmol/L (-2 to +3); PCO2 45.3 mmHg (35.0-45.0); PO2 102.3 mmHg (75.0-100.0); pH 7.405 (7.340-7.450)
--- NOTE | 2019-04-20 15:55 | EKG ---
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
--- NOTE | 2019-04-20 15:55 | EKG ---
[place] [address] ELECTROCARDIOGRAM REPORT Name: JOYCE SHER Wiley Room: [place] [address] ADM IN [facility].#: [id number] Admission: 04/20/19 Attend Phys: Darryl Tapia MD Discharge: Date of : 43 Report #: [id number] THIS REPORT FOR: //name// [facility] ED Test Date: 2019-04-20 Test Time: 11:10:47 Pat Name: JOYCE SHER Department: Room: [facility] Gender: F Coding Specialist: EV : 1945 Requested By: Viridiana Brennan Order Number: [id number] MD: Abdifatah Prakash Measurements Intervals [place] Rate: 69 P: WI: QRS: -69 QRSD: 161 T: 110 QT: 465 QTc: 499 Interpretive Statements Atrial fibrillation Ventricular premature complex ventricular paced beats Compared to ECG 04/03/2019 12:49:27 Ventricular premature complex(es) now present Electronically Signed On 04-20-2019 15:55:18 CDT by Abdifatah Prakash [email or web address] <ELECTRONICALLY SIGNED> By: Abdifatah Prakash MD, [facility] 04/20/19 1550 1110 1110 Abdifatah Prakash MD, [facility] /EPI
--- NOTE | 2019-04-20 17:02 | NUR ---
DINNER TRAY ORDERED FOR PT
[2019-04-20 18:03] VITALS: BP 116/71
[2019-04-20 18:32] VITALS: BP 101/45
--- NOTE | 2019-04-20 19:07 | NUR ---
pt admitted from er . report received from nurse pt is aox4. afib on monitor. on 2 l nc. see vs on chart. vss. wound care picture not takne as pt already have picture in chart per charge nurse. see chart. call light at reach. iv fluid infusing wo from er as ordered. heparin bolus given , heparin drip started see chart for dosage details
--- NOTE | 2019-04-20 19:35 | NUR ---
INITAL HEPARIN DRIP WAS STARTED AT 1500 UNITS DIRECTED ON PROTOCOL. SEE PAPER CHART. PAPER CHART WAS SENT TO [facility]ARM[facility]
[2019-04-20 19:50] VITALS: BP 111/70
[2019-04-20 20:00] VITALS: BP 111/70
[2019-04-21] VITALS: BP 110/65
[2019-04-21 01:33] LABS: HEMATOCRIT 53.1 % (37.0-47.0); MCH 34.7 pg (26.0-34.0); MCHC 33.9 g/dL (28.0-37.0); MCV 102.3 fL (80.0-100.0); MPV 8.3 fl. (7.2-11.1); RBC 5.19 mil/uL (4.20-5.00); RDW-CV 17.3 % (10.5-14.5); WBC 6.8 thou/uL (4.0-11.0)
[2019-04-21 01:50] LABS: ALBUMIN 2.7 g/dL (3.4-5.0); CALCIUM 8.6 mg/dL (8.5-10.1); CREATININE 1.4 mg/dL (0.6-1.3); POTASSIUM 4.7 mmol/L (3.5-5.1); TOTAL BILIRUBIN 2.5 mg/dL (<0.1-1.0)
[2019-04-21 01:52] LABS: MAGNESIUM 1.9 mg/dL (1.8-2.4); TROPONIN-I LEVEL 0.12 ng/mL (<0.06)
[2019-04-21 04:00] VITALS: BP 116/75
--- NOTE | 2019-04-21 04:56 | NUR ---
PT CARE ASSUMED AT 1930. SAT MAINTAINED IN O2. ALERT AND ORIENTED X4. CALL LIGHT WITHIN REACH AND BED IN LOW POSITION. SOB WITH EXERTION. DENIES PAIN. HEPARIN DRIP RUNNING. HOURLY ROUNDING DONE FOR PT SAFETY.
[2019-04-21 08:30] VITALS: BP 140/78
--- NOTE | 2019-04-21 09:00 | NUR ---
ASSUMED CARE AFTER REPORT APPROX 0730. OX4, ABLE TO EXPRESS NEEDS TO STAFF. 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 O2 SATS 96% 3L NC. UP WITH STAFF AND WALKER TO BSC AND CHAIR. CALL LIGHT WITHIN REACH. HOURLY ROUNDING FOR SAFETY AND PATIENT NEEDS.
--- NOTE | 2019-04-21 10:28 | CON ---
[address] [address] CONSULTATION Name: NIKKYJOYCE K Room: [address] IN M.R.#: [id number] Admission: 04/20/19 Attend Phys: Darryl Tapia MD Discharge: Date of : 43 Report #: [id number] THIS REPORT FOR: //name// CC: Darryl Dasilva DO DATE OF SERVICE: 04/21/2019 CARDIOLOGY CONSULTATION HISTORY OF PRESENT ILLNESS: The patient is a 74-year-old white female who I was asked to see in the hospital today after she complained of being short of breath. The patient has had several hospitalizations here at [facility]. She was admitted here in 2016 with drainage from her right foot after a TV fell on the foot. She has a history of diabetes. She was told, at that time, she had a slow heart rate. She was seen by my nurse practitioner and felt that having evidence of sick sinus syndrome. No treatment was recommended at that time. Her cellulitis was treated. The patient was next seen here at [facility] in 09/[address] Quintanilla. At that time, she had atrial fibrillation with slow ventricular response rate. She was treated medically at that time. She then presented a little over a year ago in November of 2017. The patient was put on Eliquis for anticoagulation because of her atrial fibrillation. However, she could not afford the Eliquis because of cough. Echocardiogram showed normal left ventricular function. However, she was noted to be in atrial fibrillation with slow ventricular response rate. Her heart rates are in the 30s. I saw her in consultation and recommended a permanent pacemaker, Corey inserted in 12/16/2017, it was an MRI compatible single lead Biotronik pacemaker. She was admitted here earlier this month with hypoxia and respiratory failure and felt to have pneumonia. She was felt to have a pulmonary embolus. She was just discharged 2 weeks ago. She actually underwent a thoracentesis recently for pleural effusion. However, she continued to complain of shortness of breath. She was brought to the hospital yesterday and admitted. She denied any fever or cough. She does have chronic edema. She has orthopnea. She denies any chest pain, palpitations or syncope. PAST MEDICAL HISTORY: She has had no major surgeries major surgical procedures. She has a history of hypertension, glucose intolerance, pulmonary embolus, chronic edema. [facility]. She has had wounds on the anterior tibial area. MEDICATIONS: On admission included Lasix, lisinopril, Eliquis, potassium. ALLERGIES: She [place] no [place] [address] CONSULTATION Name: JOYCE SHER Room: [address] IN M.R.#: [id number] Admission: 04/20/19 Attend Phys: Darryl Tapia MD Discharge: Date of : 43 Report #: [id number] FAMILY HISTORY: Positive for heart disease. SOCIAL HISTORY: She is . She and her live in [place], [place]. She uses a walker. No smoking or alcohol abuse. REVIEW OF SYSTEMS: She is morbidly obese, standing 5 feet 3 inches, weighing 356 pounds. She has no history of sleep apnea, stroke, asthma, peptic ulcer disease, liver disease, kidney disease, cancer, psychiatric illness, chronic skin condition. PHYSICAL EXAMINATION: GENERAL: Revealed a large, elderly female sitting in a chair. She appeared in no acute distress. VITAL SIGNS: She had a blood pressure of 120/70, pulse 70. She is afebrile. HEENT: She was anicteric. Conjunctivae are pink. Mucous membranes moist. NECK: Neck veins difficult to assess due to obesity. CHEST: Clear to auscultation. CARDIOVASCULAR: Regular rate and rhythm, grade 2 systolic ejection murmur. ABDOMEN: Obese. EXTREMITIES: Had trace edema. SKIN: Cool and dry. NEUROLOGIC: Nonfocal. LYMPH: No adenopathy. MUSCULOSKELETAL: No joint effusion. LABORATORY DATA: ECG showed atrial fibrillation with a ventricular paced rhythm. She had an echocardiogram done 2 weeks ago here at [facility] that showed ejection fraction of 50%, biatrial enlargement. There was at least moderate aortic stenosis and apical hypokinesis. Pacemaker lead noted and a left pleural effusion. The peak gradient across the aortic valve was 50 mmHg. On her x-rays, she had a portable chest x-ray yesterday that showed a large left pleural effusion with atelectasis. Her thoracentesis was just done [address] scan using a PE protocol done yesterday showed no pulmonary embolus, large left pleural effusion, small right effusion, evidence of coronary artery disease, cardiomegaly, aortic valve calcifications. Her lab work revealed the following: She had sodium 139, potassium 4.7, creatinine 1.4. Liver function studies are normal. Albumin 2.7. Troponin 0.12. BNP 3308. Last year, her T4 was 1.73. Previous hemoglobin A1c was 5.9. Her INR yesterday was 2.0. White blood cell count 6.8, hemoglobin 18. IMPRESSION AND RECOMMENDATIONS: 1. Atrial fibrillation. I would hold the patient's warfarin at this time because of her vaginal bleeding. 2. Previous pacemaker insertion. The patient is 100% paced. 3. Hypertension. The patient is on [place] [address] CONSULTATION Name: JOYCE SHER Room: [address] IN .R.#: [id number] Admission: 04/20/19 Attend Phys: Darryl Tapia MD Discharge: Date of : 43 Report #: [id number] 4. Large pleural effusion. I would consider sclerotherapy. 5. Morbid obesity. <ELECTRONICALLY SIGNED> By: Abdifatah Prakash MD, FACC 04/21/19 1028 0750 [id number] Prakash MD, FACC /nt
[2019-04-21 12:00] VITALS: BP 128/95
--- NOTE | 2019-04-21 12:00 | NUR ---
HEPARIN GTTS RESTARTED AT 563 UNIT/HR, HALF THE RATE OF PREVIOUS INFUSION. NO BOLUS DOSE GIVEN. PATIENT TOLERATING WELL.
[2019-04-21 17:00] VITALS: BP 147/87
[2019-04-21 19:55] VITALS: BP 100/68
[2019-04-22 00:54] VITALS: BP 113/56
[2019-04-22 04:00] VITALS: BP 97/69
[2019-04-22 05:11] LABS: HEMOGLOBIN 16.3 gm/dL (12.0-15.0); MCH 34.2 pg (26.0-34.0); MCHC 33.3 g/dL (28.0-37.0); MCV 102.6 fL (80.0-100.0); RBC 4.78 mil/uL (4.20-5.00); RDW-CV 16.6 % (10.5-14.5); WBC 5.6 thou/uL (4.0-11.0)
--- NOTE | 2019-04-22 05:13 | NUR ---
PT CARE ASSUMED AT 1930. SAT MAINTAINED IN O2. ALERT AND ORIENTED X4. CALL LIGHT WITHIN REACH AND BED IN LOW POSITION. DENIES PAIN. SOB WITH LITTLE EXERTION. PT APPEARS CYANOTIC AT TIMES. HOURLY ROUNDING DONE FOR PT SAFETY.
[2019-04-22 05:38] LABS: CALCIUM 8.5 mg/dL (8.5-10.1); CREATININE 1.2 mg/dL (0.6-1.3); MAGNESIUM 1.7 mg/dL (1.8-2.4); POTASSIUM 3.7 mmol/L (3.5-5.1); TROPONIN-I LEVEL 0.09 ng/mL (<0.06)
[2019-04-22 07:40] VITALS: BP 100/49
--- NOTE | 2019-04-22 07:47 | CON ---
[address] [address] CONSULTATION Name: JOYCE SHER Room: [address] IN M.R.#: [id number] Admission: 04/20/19 Attend Phys: Darryl Tapia MD Discharge: Date of : 43 Report #: [id number] THIS REPORT FOR: //name// CC: Abdifatah Prakash MD [facility] Darryl Dasilva DO DATE OF SERVICE: 04/21/2019 LOCATION: Room 223. INDICATION FOR CONSULTATION: Left pleural effusion, possible pulmonary emboli, dyspnea, and hypoxemia. HISTORY OF PRESENT ILLNESS: The patient is a 74-year-old female, just discharged from [facility] about 2 weeks ago after she presented to the wound clinic with worsening shortness of breath or weight gain. Her sats were down. She was not on any oxygen at home and is now on 5 or 6 liters here. She had increasing peripheral edema and PND or orthopnea. She says she was taking her Eliquis at home for atrial fibrillation and for her solitary pulmonary emboli of the left lower lobe. She has had venous ulcers. She has had previous workup a couple of weeks ago by Dr. Cain, my partner, and venous Dopplers were negative. This was a left-sided transudative effusion related to what we think is severe aortic stenosis and cytology was negative. Cultures were negative. She has been on Lasix twice a day at home. She had had weight gain with more shortness of air. She denies any hemoptysis. She told Dr. Prakash that she was having some vaginal bleeding. She was on IV heparin that has been on hold at least at this time. The patient had 800 mL that was tapped a couple of weeks ago that again was transudative, and she had marked improvement in her shortness of breath at that time. She denies any chest pain or palpitations at least at this time. PAST MEDICAL HISTORY: She has had atrial fibrillation and flutter. She has had bradycardia. She has had a pacemaker inserted about a year ago for that. She has a clinical diagnosis of sleep apnea. She has never had a sleep study performed on her though. She has chronic dyspnea on exertion. She has chronic venous insufficiency also and again noted aortic stenosis. She is polycythemic and I have not seen that before. I am not sure what the etiology of that is unless it is nighttime hypoxemia. Other past medical history includes pacemaker insertion last year. She had first-degree and second-degree AV Mobitz block. 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 She also has hypothyroidism. [place] [address] CONSULTATION Name: JOYCE SHER Room: [address] IN ..#: [id number] Admission: 04/20/19 Attend Phys: Darryl Tapia MD Discharge: Date of : 43 Report #: [id number] diabetes mellitus type 2. ALLERGIES: SHE HAS ALLERGIES OR INTOLERANCE TO STATINS WHICH GIVE HER MUSCLE PAIN. OUTPATIENT MEDICATIONS: She is supposed to be on Eliquis 5 mg b.i.d., previously had been increased to 10 mg b.i.d. She was on furosemide, Lasix 40 mg b.i.d. Lisinopril was 10 mg daily, levothyroxine was 100 mcg daily, and potassium chloride 10 mEq b.i.d. Currently in the hospital, she is on Lasix 40 mg IV push every 12 hours, potassium supplements, and also oxygen at 5-6 liters. FAMILY HISTORY: Negative for premature cardiopulmonary disease. There is some hypertension. SOCIAL HISTORY: Lifelong nonsmoker and nondrinker. Lives at home with her in [place], [place]. REVIEW OF SYSTEMS: A 14-point review of systems was reviewed and negative except for pertinent positives noted in the HPI. She has had a wound in her right leg. She has had venous stasis ulcers noted. She denies any chest pain. Again, chronically has dyspnea and some weight gain. PHYSICAL EXAMINATION: GENERAL: A 74-year-old female, in no acute distress. HEENT: Nares and pharynx are clear. Mouth is crowded, probably Mallampati score of 2-3. NECK: She has a thick neck without any increased jugular venous pressure. Redundant neck tissue is noted. CHEST: Shows diminished breath sounds on the left with a few crackles and rhonchi on the right. Also a bit more crackles and diminished breath sounds and dullness on the left. CARDIOVASCULAR: Irregular rate and rhythm with ventricular response in the 90s. ABDOMEN: Obese. EXTREMITIES: Show 2-3+ edema. Both of her legs are compression wrapped. Peripheral pulses 0-1+ and skin is cyanotic. Poor venous return in both lower extremities. No other rashes noted. NEUROLOGIC: Nonfocal and alert. Moves all fours to commands. LABORATORY DATA: Hemoglobin again was 18.3 and 18 today, white count 6800 and 5900, hematocrits both time have been 53, and platelets 206,000. Sodium is 139, potassium is 4.7, bicarbonate is 30, BUN is 20, creatinine is 1.4, GFR is 37, and LFTs are elevated. NT-proBNP is 3308. Previous echo showed an EF of 50% or 55% and moderately severe aortic stenosis. No significant pulmonary hypertension. Total bilirubin was 2.5. It should be noted also that alkaline phosphatase was 120. ABGs yesterday afternoon in the Emergency Room on 2 liters showed a pO2 of 102, pH 7.40, pCO2 is 45, and carboxyhemoglobin [place] 0[place] [address] CONSULTATION Name: JOYCE SHER Wiley Room: [address] IN [facility].#: [id number] Admission: 04/20/19 Attend Phys: Darryl Tapia MD Discharge: Date of : 43 Report #: [id number] ABG O2 content was 24.9 which was high and again previous labs showed transudative left effusion, 800 mL with negative cytology and negative cultures. IMPRESSION: 1. Dyspnea, multifactorial. 2. Acute hypoxic respiratory failure, multifactorial. 3. Fluid overload with congestive heart failure, related to aortic stenosis. 4. Transudative left effusion, related to fluid overload and aortic stenosis. 5. Polycythemia, etiology unclear, could be related to nighttime hypoxemia. No history of smoking. Also, has elevated LFTs, may need workup for polycythemia. 6. Solitary pulmonary emboli in the left lower lobe, not seen on last night CT angio of the chest, somewhat soft ill-defined finding on the previous 2 CT angios on 04/03/2019 and 04/07/2019, especially with compressive atelectasis and left pleural effusion. 7. Venous ulcers of both lower extremities, no evidence of deep venous thrombosis on venous Dopplers. 8. Obesity, clinically suspicious for obstructive sleep apnea. PLAN: The patient has multiple medical problems to answer further questions. I do not think she needs a thoracentesis at this time. We will continue with Lasix and continue oxygen. She probably has some obstructive sleep apnea at night. I do not think she needs an IVC filter. I would not push for a PleurX catheter at this time and just follow up with chest x-ray in a day or 2. If she still has pleural effusion on Tuesday, we could tap her if she is off the IV heparin and see if we can find transudative pleural effusion again. We certainly need to make sure her euthyroid is back within normal limits. We would also recheck an echo if needed and Dr. Prakash is looking into that. I would go ahead and anticoagulate at least at this time. I am not very convinced that she has had large pulmonary emboli, this may be a small solitary pulmonary emboli and there is some data or question whether this needs to be treated aggressively with anticoagulation. With her history of atrial fibrillation though, I would tend to be aggressive and treat with anticoagulants and again just make sure we are not doing any invasive procedures and we could use IV heparin off and on. I am not sure how vigorous her vaginal bleeding is. Certainly, she is polycythemic and not anemic at this time, so I am okay with anticoagulating her as long as we watch her status of her vaginal bleeding and follow up daily CBCs. This has been a 38-minute critical care consult. [facility] will follow up along with you. <ELECTRONICALLY SIGNED> By: Aly Ureña MD 04/22/19 0747 [id number] [id number] Ureña MD /nt
--- NOTE | 2019-04-22 09:45 | NUR ---
ASSUMED CARE AFTER REPORT APPROX 07. A&OX4, EXPRESSES NEEDS TO STAFF EFFECTIVELY. REPEAT CHIEF IN PLACE, AFIB. O2 SAT 100% ON 2L NC. UP TO CHAIR WITH WAFFLE CUSHION. [place] [facility] [place] AND 1 STAFF MEMBER. GLUCOSE 55 THIS AM, ASYMPTOMATIC. RECHECK GLUCOSE 74 PRIOR TO BREAKFAST TRAY. CALL LIGHT WITHIN REACH. HOURLY ROUNDING FOR SAFETY AND PATIENT NEEDS.
[2019-04-22 14:09] VITALS: BP 114/53
[2019-04-22 20:00] VITALS: BP 98/56
[2019-04-23] VITALS: BP 112/49
[2019-04-23 04:20] VITALS: BP 107/42
[2019-04-23 04:55] LABS: HEMATOCRIT 50.9 % (37.0-47.0); MCH 34.3 pg (26.0-34.0); MCHC 33.4 g/dL (28.0-37.0); MCV 102.8 fL (80.0-100.0); MPV 8.3 fl. (7.2-11.1); RBC 4.95 mil/uL (4.20-5.00); RDW-CV 17.5 % (10.5-14.5); WBC 5.2 thou/uL (4.0-11.0)
[2019-04-23 05:01] LABS: CALCIUM 8.5 mg/dL (8.5-10.1); CREATININE 1.1 mg/dL (0.6-1.3); MAGNESIUM 1.8 mg/dL (1.8-2.4); POTASSIUM 4.3 mmol/L (3.5-5.1)
[2019-04-23 05:04] LABS: INR 1.4; PROTIME 14.6 Seconds (9.20-11.50)
[2019-04-23 05:09] LABS: APTT 29.7 Seconds (25.0-31.3)
--- NOTE | 2019-04-23 06:04 | NUR ---
PT CARE ASSUMED AT 1930. SAT MAINTAINED IN O2. ALERT AND ORIENTED X4. CALL LIGHT WITHIN REACH AND BED IN LOW POSITION. HAS CYANOTIC APPERANCE AT TIMES. SOB WITH LITTLE EXERTION. HEPARIN STOPPED AT MIDNIGHT. DENIES PAIN. CALL LIGHT WITHIN REACH AND BED IN LOW POSITION. HOURLY ROUNDING DONE FOR PT SAFETY.
[2019-04-23 08:00] VITALS: BP 117/62
--- NOTE | 2019-04-23 09:20 | NUR ---
WOUND CARE NOTE: CONSULT RECEIVED FOR RT LEG WOUND. PATIENT CURRENTLY OFF UNIT IN PROCEDURE. WILL ATTEMPT TO ASSESS TOMORROW.
[2019-04-23 11:32] VITALS: BP 120/58
--- NOTE | 2019-04-23 13:20 | NUR ---
SW met with pt to complete reassessment as pt just dc'ed and readmitted. Pt lives at home with and pt plans to return home with again when ready to dc. Pt still has RW, cane and hx/current with [facility]. Pt did not qualify for oxygen at last dc, SW explained that pt might be tested again prior to dc to make sure that is still the case. Pending chest xray, labs, needing complete diuresis and on IV lasix according to chart review. SW to continue to follow to assist with safe dc planning.
--- NOTE | 2019-04-23 14:20 | NUR ---
Nutrition: Pt admitted with SOA. Seen for high BMI. Pt's wt is fluctuating greatly, 240s to 260s. Diuresing, per cardiology. Had thoracentesis. CHO controlled diet, eating 80%. +BM. Albumin 2.7, prealb 7.4, likely low R/T fluid retention. Consider low nutrition risk.
[2019-04-23 16:56] VITALS: BP 111/61
[2019-04-23 20:30] VITALS: BP 88/49
[2019-04-24] VITALS (8 sets, daily range): BP systolic 84–119; BP diastolic 43–73
--- NOTE | 2019-04-24 04:26 | NUR ---
Pt reports breathing better following thoracentesis. Reports some discomfort with deep breathing, otherwise no complaints. BP 80s-90s/40s-50s. Will continue to monitor.
[2019-04-24 05:32] LABS: CALCIUM 8.4 mg/dL (8.5-10.1); MAGNESIUM 1.7 mg/dL (1.8-2.4); POTASSIUM 3.8 mmol/L (3.5-5.1)
--- NOTE | 2019-04-24 08:48 | NUR ---
ASSUMED CARE OF PT THIS AM AROUND 0715- REACH LIFT TRUCK DRIVER IN PLACE ORDERED, TRACING A-FIB/RATE CONTROLLED WITH BBB- UPON ASSESSMENT PT NOTED TO BE RESTING IN BED SIDE RECLINER- PT A&O X4, FORGETFULL- CONTINENT OF B/B, FREQUENT URINATION NOTED R/T LASIX- DIMINISHED LUNG SOUNDS NOTED, DYSPNEA NOTED ON EXERTION- VSS, O2 SAT 98% ON 2L VIA NC- ABD OBESE/SOFT/NON-TENDER, BS X4 QUADS- IV NOTED TO LEFT THUMB/WRIST INTACT AND SL- 2-3+ BLE EDEMA NOTED WITH REDNESS- RLE NOTED WITH DRESSING IN PLACE AND WRAPPED WITH ARSENIO, DUE TO BE ASSESSED PER WN THIS SHIFT- LEG ELEVATION ENCOURAGED-GOOD PO INTAKE NOTED THIS AM WITH BREAKFAST, BS MONITORED ORDERED- 2L F/R IN PLACE INDICATED- MG NOTED AT 1.7, AND HAS BEEN REPLACED PER PROTOCOL WITH REDRAW TO FOLLOW- PT DENIES ANY C/O PAIN/DISCOMFORT AT THIS TIME- CALL LIGHT AND PERSONAL BELONGINGS WITH IN REACH- HOURLY ROUNDS IN PLACE R/T SAFETY/NEEDS- ALL NEEDS MET AT THIS TIME-WCTM
[2019-04-24 14:06] LABS: BODY FLUID LDH 117 IU/L (()); BODY FLUID PROTEIN 1.7 g/dL (())
--- NOTE | 2019-04-24 17:08 | NUR ---
PT CURRENLTY RESTING IN BED SIDE RECLINER- MITERING MACHINE OPERATOR IN PLACE ORDERED, TRACING A-FIB/V-PACED/BBB- IV NOTED TO LEFT THUMB INTACT AND SL- IV LASIX THIS SHIFT PRESCIBED- PT NOTED TO BE UP TO BED SIDE RECLINER MOST SHIFT AND UP AND DOWN TO BED SIDE RECLINER WITH FREQUENT URINATION R/T DIURETICS- METALAZONE 5MG STARTED THIS SHIFT WITH 1ST DOSE GIVEN-F/R IN PLACE WITH ACCURATE I&O INDICATED- PT UP WALKING HALLWAY THIS SHIFT WITH PT INDICATED, TOLERATING WELL- NUTRITION CONSULT NOTED FOR CHF/DM EDUCAITON THIS SHIFT- WN HERE TO ASSESS BLE WITH DRESSINGS CHANGED AND ORDERS NOTED IN MEDITECH- CALL LIGHT AND PERSONAL BELONGINGS WITH IN REACH- PT MAKES NEEDS KNOWN- ALL NEEDS MET AT THIS TIME-WCTM
--- NOTE | 2019-04-24 17:12 | NUR ---
WOUND CARE NOTE: CONSULT RECEIVED FOR RT LEG WOUND. PATIENT IS KNOWN TO ME FROM PREVIOUS HOSPITAL STAY, ALSO SEEN IN THE WOUND CENTER. RIGHT LEG: FULL THICKNESS ULCERATIONS, HEALING, MUCH IMPROVED FROM LAST HOSPITAL STAY. CLUSTERED, WOUNDS MEASURE APPROXIMATELY 13X4.5X0.2. MOIST, PALE WOUND BEDS. SMALL AMOUNT OF SEROSANGUINEOUS DRAINAGE. CLEANSED LEG WITH SOAP AND WATER. APPLIED LOTION TO INTACT SKIN. APPLIED OPTIFOAM AG TO ULCERATIONS. SECURED WITH 4-LAYER COMPRESSION WRAP. LEFT LEG: PATIENT HAD BEEN SITTING IN A CHAIR WITHOUT ELEVATING HER LEGS. LEFT LEG NOW WITH SCATTERED BLISTERS DUE TO 4+ PITTING EDEMA NOW IN THIS LEGS. NO COMPRESSION NOTED TO THIS LEG. TOES AND TOENAILS ARE MACERATED, PATIENT STATED SHE LEAKED A LITTLE WHEN GETTING UP TO USE THE RESTROOM. 2 SKIN TEARS NOTED TO THE 2ND TOE, DORSAL ASPECT. PATIENT STATED HER ACCIDENTALLY STEPPED ON HER TOE. APPEARS TO BE PARTIAL THICKNESS. CLEANSED ENTIRE LEG WITH SOAP AND WATER, APPLIED LOTION. APPLIED OPTIFOAM AG TO BLISTERS AND SKIN TEARS ON TOES. SECURED WITH KERLIX AND ARSENIO. TAPED THE OPTIFOAM AG TO HER TOE. PATIENT TOLERATED DRESSING CHANGES WELL. EDUCATED PATIENT ON IMPORTANCE OF KEEPING HER LEGS ELEVATED AND USING THE RECLINER IF SHE IS WANTING TO SIT SO SHE CAN ELEVATE HER LEGS. PATIENT COMMUNICATED UNDERSTANDING. RECOMMEND KEEP LEGS ELEVATED CHANGE DRESSING TO LEFT LEG DAILY
[2019-04-24 22:30] LABS: SOURCE PLEURAL
[2019-04-24 22:31] LABS: SOURCE PLEURAL
[2019-04-25 04:00] VITALS: BP 90/39
[2019-04-25 04:57] LABS: CALCIUM 8.4 mg/dL (8.5-10.1); MAGNESIUM 1.7 mg/dL (1.8-2.4); POTASSIUM 3.5 mmol/L (3.5-5.1)
--- NOTE | 2019-04-25 06:17 | NUR ---
ASSUMED CARE OF PT AFTER REPORT AT 1930. PT A&OX4. VSS. PHYSICAL ASSESSMENT COMPLETED AND CHARTED. PT ON O2 AT 2L NC. PT TRACING AFIB/VPACED ON TELE. PT UPSTANDBY TO RESTROOM. PT DENIES ANY PAIN OR DISCOMFORT. SLEEP STUDY DONE. MAGNESIUM 1.7. ELECTROLYTE PROTOCOL IN PLACE. PT ABLE TO SLEEP WELL ON BED. CALL LIGHT WITHIN REACH.
[2019-04-25 08:00] VITALS: BP 112/57
[2019-04-25 10:55] LABS: URINE BILIRUBIN NEGATIVE (Negative); URINE BLOOD 3+ (Negative); URINE CLARITY CLEAR; URINE COLOR YELLOW; URINE GLUCOSE-RANDOM NEGATIVE (Negative); URINE KETONES NEGATIVE (Negative); URINE LEUKOCYTES-REFLEX TRACE (Negative); URINE NITRITE-REFLEX NEGATIVE (Negative); URINE PROTEIN TRACE (Negative); URINE SPECIFIC GRAVITY 1.015 (1.005-1.030)
[2019-04-25 11:01] LABS: BACTERIA-REFLEX 1-9 Few /HPF (None Seen); CASTS None Seen /LPF (None Seen); CRYSTALS None Seen /LPF (None Seen); HYALINE CASTS 0-3 Few /LPF (None Seen); MUCUS 0-3 Light strn/LPF (None Seen); SQUAMOUS 0-3 Few /LPF (0-3); URINE WBC-REFLEX 0-5 Rare /HPF (0-5)
[2019-04-25 11:46] VITALS: BP 101/70
--- NOTE | 2019-04-25 12:15 | NUR ---
ASSUMED PT CARE AT 0800, AOX4, UP WITH ASSIST, USE WALKER, O2 SAT 90'S 2L NC. TRACING AFIB ON TELE. DENIES PAIN. PT FOR ACCU CHECK. PT LOWER EXTREMITY EDEMA NOTED. WOUND C/D/I. LAST BM TODAY, LUNG SOUND DIMINISHED. PT FOR OT/PT. VSS, AM ASSESSMENT CHARTED. MEDS GIVEN PER MAR. CALL LIGHT WITHIN REACH, WILL CONTINUE TO MONITOR.
[2019-04-25 15:58] VITALS: BP 106/52
[2019-04-25 20:00] VITALS: BP 97/52
[2019-04-26] VITALS (7 sets, daily range): BP systolic 78–115; BP diastolic 47–70
--- NOTE | 2019-04-26 02:39 | NUR ---
PT A+O X 4 BUT FORGETFUL WITH SHORT TERM MEMORY. PT IS SOA WHEN HOB IS LOWERED. UP TO BEDSIDE COMMODE WITH ASSISTANCE. PT IS SLOW WITH MOVEMENTS BUT ABLE TO COMPLETE TASKS. 2L O2 INTACT. FEET ELEVATED. DENIES DISCOMFORT. TRACING VPACED/ AV PACED ON MONITOR. CALL LIGHT IN REACH. HOURLY ROUNDING FOR SAFETY.
[2019-04-26 04:59] LABS: CALCIUM 8.8 mg/dL (8.5-10.1); MAGNESIUM 1.7 mg/dL (1.8-2.4); POTASSIUM 3.9 mmol/L (3.5-5.1)
--- NOTE | 2019-04-26 11:07 | PATH ---
[address] [address] PATHOLOGY RPT PROCEDURE Name: JOYCE SHER Room: [address] IN [facility]#: [id number] Admission: 04/20/19 Date of : 43 Discharge: Report #: [id number] Path Case #: [id number] Note [facility] Accession Number: [id number] TESTS RESULT FLAG UNITS REF RANGE LAB Clinician Provided Cytology Information No. of containers..01 Other (Miscellaneous) Source: LT PLEURAL FLUID DIAGNOSIS: LT PLEURAL FLUID NEGATIVE FOR MALIGNANT CELLS. CELLULAR DEGENERATION IS PRESENT. REACTIVE MESOTHELIAL CELLS, MIXED INFLAMMATORY CELLS AND RBCs. THIS INTERPRETATION INCLUDES EVALUATION OF A CELL BLOCK. Signed out by: 02 Jeremi Vivar MD, Pathologist NPI- [id number] Performed by: 01 Jack Juan, Food Operations Manager ([facility]) Gross description: 01 35ML, YELLOW ORANGE, CLOUDY /LCS 07/31/1840 0000 Local FLAG LEGEND: L-Low Normal,H-High Normal,LL-Alert Low,HH-Alert High <-Panic Low,>-Panic High,A-Abnormal,AA-Critical Abnormal Performed at: [address] [place] [address] Gene Garcia MD, [address] [place] [address] [address], [place] [address] Jeremi Vivar MD, Performed at: [address], [place], [place] [id number] MD Gene Garcia MD Phone: [phone]
--- NOTE | 2019-04-26 14:12 | NUR ---
Following for d/c planning needs. Reviewed chart. Pt may be ready for d/c on Tuesday. Called [facility] to notify them of possible d/c on Tuesday. Will fax orders when available.
[2019-04-27] VITALS: BP 89/44
[2019-04-27 04:29] VITALS: BP 116/41
[2019-04-27 04:46] LABS: CALCIUM 9.3 mg/dL (8.5-10.1); MAGNESIUM 1.8 mg/dL (1.8-2.4); POTASSIUM 3.3 mmol/L (3.5-5.1)
--- NOTE | 2019-04-27 05:39 | NUR ---
PT. PROGRESSING TOWARDS GOALS. UNREMARKABLE SHIFT. REMAINS AV PACED. CALL LIGHT IN REACH, WILL CONTINUE TO MONITOR.
[2019-04-27 08:00] VITALS: BP 96/61
[2019-04-27 12:00] VITALS: BP 82/46
--- NOTE | 2019-04-27 15:12 | NUR ---
MET WITH PT, SHE STATES SHE IS FEELING IMPROVED. JOE ALEJANDRO TOMORROW. STILL PLANS TO GO HOME WITH [facility] AND [facility]. CALLED AND UPDATED [facility] RE: POSSIBLE WEEKEND DC
--- NOTE | 2019-04-27 15:23 | NUR ---
WOUND CARE NOTE: REASSESSMENT OF BL LEG WOUNDS. DRESSINGS INTACT, BUT LOOSE. THESE WERE REMOVED. WASHED WITH SOAP AND WATER, RINSED. APPLIED LOTION TO INTACT SKIN. BL FEET ARE COOL TO TOUCH WITH RUBUR. PATIENT SITTING WITH BL LEGS DEPENDENT. BLISTERS TO LEFT LEG HAVE HEALED. SKIN TEARS TO THE 2ND TOE ON THE LEFT FOOT ARE WITH DRY, SCABS. APPLIED DOUBLE LAYER TUBIGRIP. CONTINUES WITH 2-3+PITTING EDEMA. RIGHT LEG: LESIONS ARE IMPROVING. EDEMA SIGNIFICANTLY REDUCED, WRINKLING PRESENT ON LEG. APPLIED OPTIFOAM AG OVER LESIONS. WRAPPED WITH 4 LAYER WRAP. REEDUCATED PATIENT ON IMPORTANCE OF KEEPING LEGS ELEVATED, USING THE RECLINER. PATIENT COMMUNICATED UNDERSTANDING, BUT WILL NEED REINFORCEMENT. PATIENT'S SPOUSE STATED THE PATIENT HAD A BLUE COMPRESSION SOCK FOR HER LEFT LEG. THIS GARMET IS NOT IN PATIENT'S ROOM, LOOKED IN ALL DRAWERS AND CLOSETS. PATIENT DID NOT HAVE THIS GARMET IN PLACE ON TUESDAY WHEN APPLIED KERLIX AND ARSENIO. WHEN ASSISTING PATIENT TO BED, PATIENT IS VERY HESITANT WITH HER STEPS. SEEMS STABLE, BUT HESITANT WITH STEPPING OR REPOSITIONING. RECOMMEND ELEVATE BLE M-W-F DRESSING CHANGES OF RIGHT LEG WITH OPTIFOAM AG OVER THE ULCERS DOUBLE LAYER TUBIGRIP TO LEFT LEG, REMOVE FOR CARES DAILY THEN REPLACE. MAY USE SAME GARMET. FOLLOW UP IN LYMPHEDEMA CLINIC FOR LONG-TERM COMPRESSION OPTIONS.
[2019-04-27 16:16] VITALS: BP 92/49
--- NOTE | 2019-04-27 16:33 | NUR ---
ASSUMED PT CARE AT 0800, AOX4, UP WITH ASSIST, USE WALKER. O2 SAT 90'S RA. TRACING AFIB, V PACED ON TELE. PT DENIES PAIN. PT FOR ACCU CHECK, FLUID RESTRICTION, I&O MONITOR. ON EXTERNAL FEMALE CATH. WOUND ON THE R LEG NOTED. C/D/I. PICTURE TAKEN. EDEMA ON BILATERAL FEET NOTED. LUNG SOUND CLEAR, LAST BM TODAY, VSS, AM ASSESSMENT CHARTED, MEDS GIVEN PER MAR, CALL LIGHT WITHIN REACH, WILL CONTINUE TO MONITOR.
[2019-04-27 19:40] VITALS: BP 105/49
[2019-04-28] VITALS (7 sets, daily range): BP systolic 82–112; BP diastolic 43–65
[2019-04-28 04:49] LABS: CALCIUM 9.3 mg/dL (8.5-10.1); CREATININE 1.2 mg/dL (0.6-1.3); POTASSIUM 3.6 mmol/L (3.5-5.1)
--- NOTE | 2019-04-28 13:15 | NUR ---
ORDERS RECEIVED FOR DC HOME WITH HH. MET WITH PT AND DISCUSSED WITH DR CORTEZ. PT NOW STATING SHE PREFERS TO GO TO SNF DOES HER . DISCUSSED OPTIONS WITH PT AND SPOUSE. THEY PREFER [facility] BUT THEY HAVE NO AVAILABILITY. 2ND CHOICE IS [facility]. CALLED AND FAXED REFERRAL TO [facility], THEY DO NOT HAVE ABILITY TO OBTAIN INSURANCE AUTH UNTIL TUESDAY. PT AND SPOUSE UPDATED. WILL FOLLOW
--- NOTE | 2019-04-28 15:47 | NUR ---
ASSUMED PT CARE AT 0800, AOX4, UP SBA, O2 SAT 90'S RA. TRACING V PACED ON TELE. PT DENIES PAIN. HAS BILATERAL LOWER EXREMITY EDEMA, I&O MONITOR. 2L FLUID RESTRICTION. WOUND C/D/I. VSS, AM ASSESSMENT CHARTED, MEDS GIVEN PER MAR, CALL LIGHT WITHIN REACH, WIILL CONTINUE TO MONITOR.
[2019-04-29] VITALS: BP 161/103
[2019-04-29 00:30] VITALS: BP 106/58
[2019-04-29 04:00] VITALS: BP 101/58
--- NOTE | 2019-04-29 05:41 | NUR ---
PT CARE ASSUMED AT 1800. SAT MAINTAINED IN RA. ALERT AND ORIENTED X4. DENIES PAIN. CALL LIGHT WITHIN REACH AND BED IN LOW POSITION. INCONTINENT OF BLADDER AT TIMES. HOURLY ROUNDING DONE FOR PT SAFETY.
[2019-04-29 07:07] VITALS: BP 101/59
--- NOTE | 2019-04-29 07:23 | NUR ---
ASSUMED CARE OF PT THIS AM AROUND 07- PROGRAM COORDINATOR EXECUTIVE EDUCATION IN PLACE ORDERED, TRACING A-FIB/BBB; PACEMAKER NOTED WITH OCCASSIONAL V-PACED NOTED- UPON ASSESSMENT PT NOTED TO BE RESTING IN BED SIDE RECLINER- PT A&O X4- CONTINENT OF BOWEL AND BLADDER WITH NOTED FREQUENCY- SBA TO COMMODE- LCTA, DIMINISHED IN BASES- DYSPNEA NOTED ON EXERTION-VSS, O2 SAT 94% ON RA- ABD SOFT/OBESE/NON-TENDER, BS X4 QUADS- LAST BM REPORTED 04/28/19- IV NOTED TO LEFT HAND INTACT AND SL- 2+ BLE EDEMA NOTED WITH COMPRESSION STOCKING IN PLACE- RLE DRESSING TO BE CHANGED PER WN, UNABLE TO OBTAIN PIC AT THIS TIME- BS MONITORING IN PLACE ORDERED- PT DENEIS ANY C/O PAIN/DISCOMFORT AT THIS TIME- CALL LIGHT AND PERSONAL BELONGINGS WITH IN REACH- PT MAKES NEEDS KNOWN- ALL NEEDS MET AT THIS TIME-WCTM
[2019-04-29 11:54] VITALS: BP 90/49
--- NOTE | 2019-04-29 16:04 | NUR ---
PT NOTED TO BE RESTING IN BED SIDE RECLINER, FAMILY AT SIDE VISITING- CARDIAC MONITORING CONTINUED, TRACING A-FIB/BBB/V-PACED AT TIMES- IV TO LEFT HAND INTACT AND SL- BP'S NOTED TO BE SOFT THIS SHIFT, MORNING LISINOPRIL AND EVENING LASIX HELD THIS SHIFT- LEG ELEVATION IN PLACE INDICATED- GOOD PO INTAKE WITH MEALS NOTED- ACCU CHECKS ORDERED, NO SSI REQUIRED THIS SHIFT- PT MAKES NEEDS KNOWN- ALL NEEDS MET AT THIS TIME-WCTM
[2019-04-29 16:30] VITALS: BP 90/49
[2019-04-30] VITALS: BP 108/42
[2019-04-30 04:00] VITALS: BP 120/87
[2019-04-30 05:18] LABS: ABSOLUTE EOSINOPHILS 0.2 thou/uL (0.0-0.7); ABSOLUTE LYMPHOCYTES 1.7 thou/uL (0.8-5.3); ABSOLUTE MONOCYTES 1.1 thou/uL (0.0-1.2); ABSOLUTE NEUTROPHILS 2.8 thou/uL (1.6-8.1); BASOPHILS 0.3 %; EOSINOPHILS 2.7 %; HEMATOCRIT 51.3 % (37.0-47.0); HEMOGLOBIN 17.4 gm/dL (12.0-15.0); MCH 34.1 pg (26.0-34.0); MCHC 33.9 g/dL (28.0-37.0); MCV 100.8 fL (80.0-100.0); MONOCYTES 18.2 %; MPV 7.5 fl. (7.2-11.1); NUCLEATED RBCS 0 /100WBC; PLATELET COUNT* 183 thou/uL (150-400); POLYS 48.8 %; RBC 5.09 mil/uL (4.20-5.00); RDW-CV 16.2 % (10.5-14.5); WBC 5.8 thou/uL (4.0-11.0)
[2019-04-30 05:23] LABS: CALCIUM 8.8 mg/dL (8.5-10.1); POTASSIUM 3.2 mmol/L (3.5-5.1)
--- NOTE | 2019-04-30 05:55 | NUR ---
PT HAS BEEN WORKING TOWARDS IMPROVING STRENGTH AND INDEPENDENCE WITH AMBULATION TO [facility]. PT STILL REQUIRES ASSISTX1.PT REQUIRES PHOTO TAKEN OF RIGHT LEG WHEN WOUND CARE ADDRESSES DRESSING CHANGE TODAY.
[2019-04-30 07:19] VITALS: BP 129/77
[2019-04-30] MEDS ORDERED: ZAROXOLYN 5MG TA5 MG PO (09:57)
--- NOTE | 2019-04-30 11:05 | NUR ---
Nutrition f/u: Question accuracy of current wt, wt a few hours prior in 220's lb range and down significantly from admit. Nsg noted significant improvement in LE edema and olive picker noted improvement of Rt LE lesions from earlier last week. Yesterday nsg noted good po intake. Lasix and other meds reviewed. CO2 40, BUN 30, no recent albumin. Continues at low nurition risk, no recommendations.
--- NOTE | 2019-04-30 11:47 | NUR ---
RECEIVED CALL FROM [facility], THEY WILL TAKE PT ONCE HAVE INSURANCE AUTH. SHE REQUESTED UPDATED PT/OT NOTES AND PROGRESS NOTES FROM TODAY INSURANCE WILL NOT AUTH WITHOUT THOSE. HAVE ASKED PT/OT TO SEE PT TODAY AND WILL FAX SOON AVAILABLE. UPDATED DR AND PT
[2019-04-30 12:17] VITALS: BP 97/53
--- NOTE | 2019-04-30 15:22 | NUR ---
ASSESSMENT COMPLETE. PT HAS DC ORDERS, PENDING AUTH FROM INSURANCE AT THIS TIME. PT IS ALERT AND ORIENTED X4, ANXIOUS ABOUT DC. PT DENIES NEED FOR PAIN MEDICATION. DRESSING CHANGES COMPLETED BY WOUND NURSE. PT IS AFIB AND AV PACED ON MONITOR. PT IS ON ROOM AIR, VSS. PT IS UP ONE ASSIST TO BSC. K+ REPLACED PER PROTOCOL. PT HAS NO OTHER CONCERNS AT THIS TIME. SEE ASSESSMENT AND VITALS FOR OTHER DETAILS. CALL LIGHT WITHIN REACH, WILL CONTINUE PLAN OF CARE
[2019-04-30 16:26] VITALS: BP 85/51
--- NOTE | 2019-04-30 16:30 | NUR ---
WOUND NURSE: PATIENT SEEN FOR DRESSING AND COMPRESSION WRAP CHANGE TO [facility]. REMOVED WRAP AND DRESSING, CLEANSED WITH SOAP AND WATER, RINSED, THEN PATTED DRY. APPLIED LOTION TO INTACT SKIN TOES TO KNEE. APPLIED OPTIFOAM GENTLE AG TO WOUND BED, THEN WRAPED WITH 4 LAYER COMPRESSION WRAP. THIS WAS TOLERATED WELL BY THE PATIENT. WOUND PRESENTS WITH SMALL AMOUNT OF SEROUS DRAINAGE AND WOUND IS SHALLOW WITH EARLY EPITHELIAL TISSUE IN THE WOUND BED. ALSO USED AN ABD TO PROTECT THE DORSAL CREASE OF THE FOOT DUE TO SLIGHT PURPLE DISCOLORATION, BUT NO OPEN WOUND ASSOCIATED AT THIS TIME.
--- NOTE | 2019-04-30 19:01 | NUR ---
PT TRANSFERRED TO ROOM 106 AT 1855, REPORT GIVEN TO JOSÉ MIGUEL REBOLLAR. ALL BELONGINGS WITH PT.
[2019-04-30 22:20] VITALS: BP 107/68
--- NOTE | 2019-05-01 07:16 | NUR ---
PATIENT HAS SLEPT WELL THROUGHOUT THE NIGHT. VSS ON RA. NO C/O PAIN. IV IN LEFT FOREARM- SL. PATIENT IS UP WITH ASSIST X 1 WITH GAITBELT AND WALKER. PATIENT INSTRUCTED TO USE CALL LIGHT WHEN NEEDING ASSISTANCE. CALL LIGHT WITHIN REACH. HOURLY ROUNDS MADE. WILL CONTINUE WITH PLAN OF CARE AND NURSING TO MONITOR.
[2019-05-01 08:04] VITALS: BP 112/77
[2019-05-01 09:24] VITALS: BP 112/77
--- NOTE | 2019-05-01 13:39 | NUR ---
CALL FROM [facility]. SHE HAS RECEIVED INSURANCE AUTH FOR PT.TO COME TO SNF. SHE WILL ARRANGE A MARKETING OPERATIONS MANAGER TIME OF 1500 PER VAN. CHART COPIED TO GO WITH PT. SMOOTH DODSON GIVEN NUMBER TO CALL REPORT. CM FAXED ORDERS TO [facility].
[2019-05-01] MEDS ORDERED: IPRAT-ALBUT 0.5-3 ML INH (14:41)
--- NOTE | 2019-05-01 14:59 | NUR ---
PT DISCHARGED TO [facility] BY WHEEL [facility]AIR [facility]AN AT 1450. REPORT CALLED AT 1455. IV OUT. DRESSINGS C/D/I. PICTURES TAKEN WITHIN 24HRS OF DISCHARGE. PERSONAL ITEMS SENT WITH PT.
== END 2019-05-01 14:50 | DRG 280 ==
LOC: M.TBA-ER 13:03 → M.2W 13:03 → M.ORTHSURG 04-30 18:54
PROVIDERS: Emergency Medicine; Internal Medicine; Internal Medicine Cardiovascular Disease; Internal Medicine Pulmonary Disease; Nurse Practitioner Family; ADMIT Internal Medicine
PROC: 0W9B3ZZ Drainage of Left Pleural Cavity, Percutaneous Approach (ICD-10-PCS; principal; 2019-04-23)
DX: I11.0 Hypertensive heart disease with heart failure (principal); J96.01 Acute respiratory failure with hypoxia; I21.A1 Myocardial infarction type 2; Z68.43 Body mass index [BMI] 50.0-59.9, adult; D68.59 Other primary thrombophilia; J98.11 Atelectasis; J90 Pleural effusion, not elsewhere classified; Z66 Do not resuscitate; I35.0 Nonrheumatic aortic (valve) stenosis; D75.1 Secondary polycythemia; I87.2 Venous insufficiency (chronic) (peripheral); I50.43 Acute on chronic combined systolic (congestive) and diastolic (congestive) heart failure; E66.01 Morbid (severe) obesity due to excess calories; E11.9 Type 2 diabetes mellitus without complications; E03.9 Hypothyroidism, unspecified; N92.0 Excessive and frequent menstruation with regular cycle; I48.0 Paroxysmal atrial fibrillation; E87.6 Hypokalemia; G47.33 Obstructive sleep apnea (adult) (pediatric); Z95.0 Presence of cardiac pacemaker; Z86.711 Personal history of pulmonary embolism; Z79.01 Long term (current) use of anticoagulants; Z79.899 Other long term (current) drug therapy; Z88.8 Allergy status to other drugs, medicaments and biological substances; Z82.49 Family history of ischemic heart disease and other diseases of the circulatory system

== ENCOUNTER → 2019-05-11 | Outpatient (CLI) | payer OTHER ==
[~2019-05-11] MED LIST changes: +IPRAT-ALBUT 0.5-3 ML INH; +ZAROXOLYN 5MG TA5 MG PO
== END ==
LOC: M.WC 04:42
DX: E11.622 Type 2 diabetes mellitus with other skin ulcer (principal); I87.313 Chronic venous hypertension (idiopathic) with ulcer of bilateral lower extremity; L97.812 Non-pressure chronic ulcer of other part of right lower leg with fat layer exposed; L97.821 Non-pressure chronic ulcer of other part of left lower leg limited to breakdown of skin; E03.9 Hypothyroidism, unspecified; I11.0 Hypertensive heart disease with heart failure; I50.22 Chronic systolic (congestive) heart failure

== ENCOUNTER → 2019-05-18 | Outpatient (CLI) | payer OTHER | LOC: M.WC 04:49 | DX: E11.622 Type 2 diabetes mellitus with other skin ulcer (principal); I87.313 Chronic venous hypertension (idiopathic) with ulcer of bilateral lower extremity; L97.811 Non-pressure chronic ulcer of other part of right lower leg limited to breakdown of skin; L97.821 Non-pressure chronic ulcer of other part of left lower leg limited to breakdown of skin; I11.0 Hypertensive heart disease with heart failure; I50.22 Chronic systolic (congestive) heart failure; E03.9 Hypothyroidism, unspecified ==

== ENCOUNTER → 2019-05-25 | Outpatient (CLI) | payer OTHER | LOC: M.WC 01:52 | DX: E11.622 Type 2 diabetes mellitus with other skin ulcer (principal); I87.311 Chronic venous hypertension (idiopathic) with ulcer of right lower extremity; L97.818 Non-pressure chronic ulcer of other part of right lower leg with other specified severity; E03.9 Hypothyroidism, unspecified; I11.0 Hypertensive heart disease with heart failure; I50.22 Chronic systolic (congestive) heart failure ==

== ENCOUNTER 2019-09-17 10:56 | Inpatient (IN) | payer OTHER ==
[~2019-09-17] VITALS: Ht 167.6 cm; Wt 92.6 kg
[~2019-09-17 10:56] MED LIST changes: +D3-501250 MCG PO; -D3-5050000 UNIT PO
[2019-09-17 11:01] VITALS: BP 101/48
[2019-09-17 11:27] LABS: ABSOLUTE EOSINOPHILS 0.1 thou/uL (0.0-0.7); ABSOLUTE MONOCYTES 0.7 thou/uL (0.0-1.2); ABSOLUTE NEUTROPHILS 3.1 thou/uL (1.6-8.1); BASOPHILS 0.5 %; EOSINOPHILS 1.9 %; HEMATOCRIT 57.3 % (37.0-47.0); HEMOGLOBIN 19.6 gm/dL (12.0-15.0); LYMPHOCYTES 34.4 %; MCH 35.1 pg (26.0-34.0); MCHC 34.2 g/dL (28.0-37.0); MCV 102.5 fL (80.0-100.0); MPV 8.4 fl. (7.2-11.1); NUCLEATED RBCS 0 /100WBC; PLATELET COUNT* 150 thou/uL (150-400); POLYS 52.2 %; RBC 5.59 mil/uL (4.20-5.00); RDW-CV 14.3 % (10.5-14.5); WBC 5.9 thou/uL (4.0-11.0)
[2019-09-17 11:34] LABS: APTT 31.2 Seconds (25.0-31.3); INR 1.7; PROTIME 16.9 Seconds (9.20-11.50)
[2019-09-17 11:40] LABS: CALCIUM 8.7 mg/dL (8.5-10.1); CREATININE 1.3 mg/dL (0.6-1.3); POTASSIUM 3.6 mmol/L (3.5-5.1)
[2019-09-17 11:50] LABS: ALBUMIN 2.2 g/dL (3.4-5.0); TOTAL BILIRUBIN 2.6 mg/dL (<0.1-1.0); TOTAL PROTEIN 6.7 g/dL (6.4-8.2)
[2019-09-17 12:01] LABS: URINE BILIRUBIN NEGATIVE (Negative); URINE BLOOD NEGATIVE (Negative); URINE CLARITY CLEAR; URINE COLOR YELLOW; URINE GLUCOSE-RANDOM NEGATIVE (Negative); URINE KETONES NEGATIVE (Negative); URINE LEUKOCYTES-REFLEX NEGATIVE (Negative); URINE NITRITE-REFLEX NEGATIVE (Negative); URINE PROTEIN NEGATIVE (Negative)
--- NOTE | 2019-09-17 12:21 | NUR ---
PT PLACED ON BEDPAN AT THIS TIME, GIVEN CALL LIGHT TO CALL RN ONCE SHE IS FINISHED. PT VERBALIZED UNDERSTANDING.
[2019-09-17 14:37] LABS: AMP/METHAMP Negative (Negative); BARBITURATES Negative (Negative); BENZODIAZEPINES Negative (Negative); COCAINE Negative (Negative); METHADONE Negative (Negative); OPIATES Negative (Negative); PCP Negative (Negative); THC Negative (Negative)
--- NOTE | 2019-09-17 16:56 | EKG ---
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 09/17/19 1655 1119 1119 Josafat Bishop MD, [facility] /EPI
[2019-09-17 17:55] VITALS: BP 105/73
[2019-09-17 22:50] VITALS: BP 110/62
[2019-09-18 00:38] VITALS: BP 104/79
[2019-09-18 04:00] VITALS: BP 112/59
[2019-09-18 04:59] LABS: ABSOLUTE EOSINOPHILS 0.1 thou/uL (0.0-0.7); ABSOLUTE MONOCYTES 0.8 thou/uL (0.0-1.2); ABSOLUTE NEUTROPHILS 3.8 thou/uL (1.6-8.1); BASOPHILS 0.5 %; EOSINOPHILS 1.5 %; HEMATOCRIT 53.5 % (37.0-47.0); HEMOGLOBIN 18.9 gm/dL (12.0-15.0); LYMPHOCYTES 29.7 %; MCH 35.5 pg (26.0-34.0); MCHC 35.3 g/dL (28.0-37.0); MCV 100.7 fL (80.0-100.0); MONOCYTES 11.3 %; MPV 7.8 fl. (7.2-11.1); NUCLEATED RBCS 0 /100WBC; PLATELET COUNT* 167 thou/uL (150-400); RBC 5.31 mil/uL (4.20-5.00); RDW-CV 14.3 % (10.5-14.5); WBC 6.7 thou/uL (4.0-11.0)
--- NOTE | 2019-09-18 05:16 | NUR ---
PATIENT HAS SLEPT WELL THROUGHOUT MOST OF THE NIGHT. VSS ON RA. MEDICATIONS GIVEN ORDERED AND CHARTED. ASSESSMENT CHARTED. NIH SCORE IS 5. PATIENT IS FORGETFUL AND CONFUSED BUT DOES HAVE HISTORY OF DEMENTIA. NO C/O OF ANY PAIN. ALBERTS TO DEPENDENT DRAINAGE WITH YELLOW URINE OUTPUT. IV IN LEFT FOREARM-NS @ 100ML/HR. FALL PRECAUTIONS IN PLACE AND HOURLY ROUNDS MADE. WILL CONTINUE WITH PLAN OF CARE AND NURSING TO MONITOR.
[2019-09-18 05:59] LABS: CALCIUM 8.6 mg/dL (8.5-10.1); CREATININE 1.4 mg/dL (0.6-1.3); POTASSIUM 3.4 mmol/L (3.5-5.1)
[2019-09-18 06:30] LABS: CHOLESTEROL 111 mg/dL (<200); HDL CHOLESTEROL 31 mg/dL (>40); LDL CHOLESTEROL 69 mg/dL (<100); TC:HDL 3.6 Ratio (Not establshd); TRIGLYCERIDE 59 mg/dL (<150); VLDL 12 mg/dL (<40)
[2019-09-18 06:31] LABS: SERUM ASSESSMENT Clear
[2019-09-18 08:00] VITALS: BP 104/66
--- NOTE | 2019-09-18 13:23 | 2DMMODE ---
[place] [address] 2 D/M-MODE ECHOCARDIOGRAM Name: NIKKYJOYCE K Room: [address] IN [facility]#: [id number] Admission: 09/17/19 Attend Phys: Valente Tavares, Discharge: Date of : 43 Date of Service: 09/18/19 1322 Report #: [id number] THIS REPORT FOR: cc: Tanner Dasilva Steve T. DO Liston, Michael J. MD [facility] ~ APPROVED REPORT Study performed: 09/18/2019 10:39:17 EXAM: Comprehensive 2D, Doppler, and color-flow Echocardiogram Patient Location: In-Patient Room #: [facility] Status: routine BSA: 1.97 HR: 60 bpm BP: 112/59 mmHg Rhythm: NSR Other Information Study Quality: Good Indications CVA/TIA Echo Enhancing Agent Indication: Rule out Shunt Agent(s) / Amount(s) Used: Agitated Saline 10 cc 2D Dimensions IVSd: 11.14 (7-11mm) LVOT Diam: 17.71 (18-24mm) LVDd: 48.23 mm PWd: 8.35 (7-11mm) Ascending Ao: 28.47 (22-36mm) LVDs: 29.35 (25-40mm) Aortic Root: 25.67 mm Volumes Left Atrial Volume (Systole) LA ESV Index: 50.30 mL/m2 Aortic Valve AoV Peak Juanito.: 3.43 m/s AO Peak Gr.: 47.07 mmHg LVOT Max P.70 mmHg AO Mean Gr.: 29.63 mmHg LVOT Mean P.52 [place] [address] 2 D/M-MODE ECHOCARDIOGRAM Name: JOYCE SHER Room: [address] IN ..#: [id number] Admission: 09/17/19 Attend Phys: Valente Tavares, Discharge: Date of : 43 Date of Service: 09/18/19 1322 Report #: [id number] LVOT Max V: 0.82 m/s AO V2 VTI: 77.92 cm LVOT Mean V: 0.58 m/s SIS (VTI): 0.61 cm2 LVOT V1 VTI: 19.32 cm Mitral Valve MV Decel. Time: 167.86 ms MV PHT: 48.68 ms MVA (PHT): 4.52 cm2 TDI Lateral E' Juanito.: 0.10 m/s Pulmonary Valve PV Peak Juanito.: 0.77 m/s PV Peak Gr.: 2.37 mmHg Tricuspid Valve RAP Estimate: 5.00 mmHg TR Peak Gr.: 19.97 mmHg RVSP: 25.00 mmHg PA Pressure: 25.00 mmHg Left Ventricle The left ventricle is normal size. The apex and apical portions of the inferior and anterior wall appear akinetic. There is normal left ventricular wall thickness. Left ventricular systolic function is mildly decreased. LVEF is 45-50%. This study is not technically sufficient to allow evaluation of the LV diastolic function due to atrial fibrillation. Right Ventricle The right ventricle is normal size. The right ventricular systolic function is normal. Pacemaker lead is present in the right ventricle. Atria Left atrium is severely dilated. The interatrial septum is intact with no evidence for an atrial septal defect. Right atrium is moderately dilated. Aortic Valve Severe aortic valve sclerosis. No aortic regurgitation is present. Severe aortic stenosis. Mitral Valve There is mitral annular calcification. Trace mitral regurgitation. No evidence of mitral valve stenosis[place] [address] 2 D/M-MODE ECHOCARDIOGRAM Name: JOYCE SHER Room: [address] IN [facility]#: [id number] Admission: 09/17/19 Attend Phys: Valente Tavares, Discharge: Date of : 43 Date of Service: 09/18/19 1322 Report #: [id number] The tricuspid valve is normal in structure. Mild tricuspid regurgitation. No pulmonary hypertension. Pulmonic Valve The pulmonary valve is normal in structure. Mild pulmonic regurgitation. Great Vessels The aortic root is normal in size. IVC is not well visualized. Pericardium There is no pericardial effusion. <Conclusion> The left ventricle is normal size. There is normal left ventricular wall thickness. Left ventricular systolic function is mildly decreased. LVEF is 45-50%. Left atrium is severely dilated. Right atrium is moderately dilated. Pacemaker lead is present in the right ventricle. The interatrial septum is intact with no evidence for an atrial septal defect. Severe aortic stenosis. Trace mitral regurgitation. Mild tricuspid regurgitation. No pulmonary hypertension. <ELECTRONICALLY SIGNED> By: Larry Mckeon MD, FACC 09/18/19 1322 1322 1322 Larry Mckeon MD, FACC /INF
--- NOTE | 2019-09-18 14:38 | NUR ---
Pt sound asleep when CM went to assess, will f/u later
[2019-09-18 17:22] VITALS: BP 92/61
[2019-09-18 19:35] VITALS: BP 130/81
[2019-09-19] VITALS: BP 101/56
[2019-09-19 02:07] LABS: GLYCOHEMOGLOBIN (HGB A1C) 5.9 % (4.8-5.6)
[2019-09-19 04:00] VITALS: BP 99/62
--- NOTE | 2019-09-19 04:26 | NUR ---
ASSUMED CARE OF PT AT 1900. PT IS CONFUSED. VSS. PERSrinivasLA. NO COMPLAINTS OF PAIN. PT IS ON ROOM AIR. PT IS V PACED ON THE TELEMETRY. PT IS RESTING COMFORTABLY IN BED. RESPIRATIONS ARE EVEN AND NONLABORED. WILL CONTINUE TO MONITOR PT.
[2019-09-19 07:22] LABS: ABSOLUTE EOSINOPHILS 0.2 thou/uL (0.0-0.7); ABSOLUTE LYMPHOCYTES 1.6 thou/uL (0.8-5.3); ABSOLUTE MONOCYTES 0.6 thou/uL (0.0-1.2); ABSOLUTE NEUTROPHILS 3.6 thou/uL (1.6-8.1); BASOPHILS 0.3 %; EOSINOPHILS 2.7 %; HEMATOCRIT 53.5 % (37.0-47.0); HEMOGLOBIN 18.4 gm/dL (12.0-15.0); LYMPHOCYTES 26.5 %; MCH 35.2 pg (26.0-34.0); MCHC 34.4 g/dL (28.0-37.0); MCV 102.3 fL (80.0-100.0); MONOCYTES 10.5 %; MPV 7.9 fl. (7.2-11.1); NUCLEATED RBCS 0 /100WBC; PLATELET COUNT* 149 thou/uL (150-400); RBC 5.23 mil/uL (4.20-5.00); RDW-CV 14.3 % (10.5-14.5); WBC 6.1 thou/uL (4.0-11.0)
[2019-09-19 07:33] LABS: CALCIUM 8.3 mg/dL (8.5-10.1); CREATININE 1.5 mg/dL (0.6-1.3); POTASSIUM 3.8 mmol/L (3.5-5.1)
[2019-09-19 08:00] VITALS: BP 113/55
--- NOTE | 2019-09-19 09:13 | CON ---
[address] [address] CONSULTATION Name: JOYCE SHER Room: [address] IN M.R.#: [id number] Admission: 09/17/19 Attend Phys: Valente Tavares MD Discharge: Date of : 43 Report #: [id number] THIS REPORT FOR: //name// cc: Tanner Dasilva Steve T. DO ~ THIS REPORT FOR: //name// CC: Valente Dasilva DO CARDIOLOGY CONSULTATION INDICATION: Elevated troponin. HISTORY OF PRESENT ILLNESS: The patient is a 74-year-old white female with history of chronic atrial fibrillation. She is status post pacemaker placement for bradycardia. Pacemaker appears to be functioning normally on telemetry. She has chronic underlying atrial fibrillation. The patient was brought to the Emergency Room with generalized weakness and decreased level of consciousness. She was admitted to the hospital for further treatment. In the Emergency Room, she was noted to have an elevated lactic acid level as well as mildly elevated troponins. The patient is exhibiting extreme weakness. PAST MEDICAL HISTORY: 1. Aortic stenosis. 2. Atrial fibrillation, chronic. 3. History of bradycardia, status post pacemaker placement. 4. Diastolic heart failure. 5. Chronically elevated troponin. 6. Hypertension. 7. Obstructive sleep apnea. 8. History of pleural effusion, status post pleurocentesis. 9. Remote history of pulmonary embolism. 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 13. Type 2 diabetes mellitus. 14. Hypothyroidism. 15. Surgery to the right foot requiring skin grafting. 16. Hyperlipidemia. 17. Dementia. ALLERGIES: STATINS. HOME MEDICATIONS: Vitamin D3 5000 units daily, furosemide 80 mg b.i.d., lisinopril 10 mg daily, Synthroid 137 mcg daily, Eliquis 5 mg b.i.d., potassium [facility] [address] [place] [address] CONSULTATION Name: JOYCE SHER Room: [address]#: [id number] Admission: 09/17/19 Attend Phys: Valente Tavares MD Discharge: Date of : 43 Report #: [id number] chloride 10 mEq b.i.d., metolazone 5 mg daily, Tylenol 500 mg q. 4 hours p.r.n., Combivent inhaler q.i.d. FAMILY HISTORY: Noncontributory. SOCIAL HISTORY: The patient is . She does not smoke. She does not drink alcohol. REVIEW OF SYSTEMS: A 14-point review of systems is positive for generalized weakness, nonproductive cough, dyspnea on exertion, cardiac murmur, history of edema, type 2 diabetes mellitus, hypothyroidism, medical allergies outlined above, osteoporosis and she wears glasses. Otherwise, 14-point review of systems was unremarkable. PHYSICAL EXAMINATION: VITAL SIGNS: Blood pressure 112/59, pulse 60 and regular. GENERAL: This is a moderately obese female who is in no distress. Affect somewhat blunted. HEENT: Head is normocephalic, atraumatic. Extraocular muscles intact. Mucous membranes are moist. NECK: Shows no jugular venous distention. CARDIAC: Reveals a regular rhythm with a soft 1-2/6 systolic ejection murmur. I do not appreciate gallop. ABDOMEN: Reveals normal bowel sounds. The abdomen is soft and nontender. CHEST: Reveals clear lung barreto. I do not appreciate wheezes, rales or rhonchi. EXTREMITIES: Shows no edema. SKIN: Dry. LABORATORY DATA: A 12-lead EKG shows ventricularly paced rhythm. Labs are reviewed. Troponin 0.13, 0.12 and 0.23. Chest x-ray shows no evidence of pulmonary vascular congestion. Single lead pacemaker noted. IMPRESSION AND RECOMMENDATIONS: 1. Elevated troponin, likely due to cardiac strain consistent with type 2 myocardial infarction. The patient is not having any symptoms to suggest acute coronary syndrome. No further invasive evaluation or stress testing necessary at this time. The patient is not having any symptoms to suggest angina. 2. Chronic diastolic heart failure, appears well compensated at present. Continue diuretics as outlined above. 3. Chronic atrial fibrillation. The patient is anticoagulated and having no bleeding problems. Rate is adequately controlled. 4. History of symptomatic bradycardia with atrial fibrillation, [place] [address] CONSULTATION Name: JOYCE SHER Room: [address] IN ..#: [id number] Admission: 09/17/19 Attend Phys: Valente Tavares MD Discharge: Date of : 43 Report #: [id number] single chamber pacemaker placement. Interrogation remotely shows normal function. 5. Generalized weakness, etiology unclear. Would recommend physical therapy. 6. Aortic stenosis. Continue surveillance echos and follow up as outpatient. <ELECTRONICALLY SIGNED> By: Larry Mckeon MD, FACC 09/19/19 0913 1124 [id number] Mckeon MD, FACC /nt
--- NOTE | 2019-09-19 11:44 | NUR ---
Pt is A&O. Resides at home with her . Independent, available to assist if needed. Pt has a walker and cane at home that she can use for mobility. No home o2. Hx of [facility]. Hx of skilled at [facility]. Therapy evals pending. Pt is hopeful that she will be able to return home at co. Following.
[2019-09-19 11:46] VITALS: BP 102/52
--- NOTE | 2019-09-19 18:47 | NUR ---
ASSUMED PT CARE AT 0700, PT A;ERT AND ORIENTED TO SELF ONLY, ABLE TO FOLLOW COMMANDS AND MAKE NEEDS KNOWN, UP WITH ASSIST X1-2 WITH WALKER AND GAIT BELT, TOLERATING WELL. DOUPER TRACING PACED RHYTHM WITH UNDERLYING AFIB, PT IS ASYMPTOMATIC, DR GOOD AWARE. INCONTINENT CARE PROVIDED, HOURLY ROUNDING AND Q 2 HOUR TURNS COMPLETED.
[2019-09-19 19:35] VITALS: BP 127/63
[2019-09-20] VITALS (7 sets, daily range): BP systolic 84–116; BP diastolic 46–72
--- NOTE | 2019-09-20 00:44 | NUR ---
ASSUMED CARE OF PT AT 1900. PT IS ALERT AND ORIENTED X 2. VSS. PERRLA. NO COMPLAINTS OF PAIN. PT IS A Q2 TURN. PT IS V PACED ON THE TELEMETRY. PT IS RESTING COMFORTABLY IN BED. RESPIRATIONS ARE EVEN AND NONLABORED. WILL CONTINUE TO MONITOR PT.
[2019-09-20 04:18] LABS: ABSOLUTE EOSINOPHILS 0.2 thou/uL (0.0-0.7); ABSOLUTE LYMPHOCYTES 1.8 thou/uL (0.8-5.3); ABSOLUTE MONOCYTES 0.7 thou/uL (0.0-1.2); ABSOLUTE NEUTROPHILS 2.8 thou/uL (1.6-8.1); BASOPHILS 0.3 %; EOSINOPHILS 3.8 %; HEMATOCRIT 51.1 % (37.0-47.0); HEMOGLOBIN 17.6 gm/dL (12.0-15.0); LYMPHOCYTES 32.3 %; MCHC 34.5 g/dL (28.0-37.0); MCV 101.6 fL (80.0-100.0); MONOCYTES 12.2 %; MPV 7.8 fl. (7.2-11.1); NUCLEATED RBCS 0 /100WBC; PLATELET COUNT* 141 thou/uL (150-400); POLYS 51.4 %; RBC 5.02 mil/uL (4.20-5.00); RDW-CV 14.3 % (10.5-14.5); WBC 5.5 thou/uL (4.0-11.0)
[2019-09-20 05:04] LABS: ALBUMIN 2.1 g/dL (3.4-5.0); CALCIUM 8.5 mg/dL (8.5-10.1); CREATININE 1.3 mg/dL (0.6-1.3); POTASSIUM 3.6 mmol/L (3.5-5.1); TOTAL BILIRUBIN 2.5 mg/dL (<0.1-1.0)
--- NOTE | 2019-09-20 18:42 | NUR ---
ASSUMED CARE OF PATIENT AT APPROX 0730. ALERT AND ORIENTED X1. PATIENT VERY CONFUSED AND ANXIOUS. ASSESSMENT CONPLETED AND CHARTED. VSS ON ROOM AIR. PATIENTS ONLY COMPLAINT THIS SHIFT HAS BEEN DISCOMFORT, ASKING TO GET UP AND MOVE AROUND, FROM THE CHAIR TO THE BED AND BACK. PATIENT IS UP WITH 2 STAFF USING GAIT BELT AND WALKER. AMARILIS ORDERED CTA CAROTID THIS AFTERNOON, CT CALLED AND DEMANDED A 20 GUAGE IN THE AC FOR THE SCAN. NEW IV PLACED AND CT CALLED TO COME AND GET PATIENT AT APPROX 1400. CT DID NOT COME TO GET PATIENT AND SOMEONE FROM CT CALLED AT 1800 TO ASK THAT WE BRING THE PATIENT DOWN FOR THE SCAN. PATIENT TAKEN DOWN BY MEDICAL GENETICS DIRECTOR'S. PATIENT HAS JUST ARRIVED BACK TO THE UNIT FROM SCAN. FALL PRECAUTIONS IN PLACE. CALL LIGHT IN REACH. HOURLY ROUNDS COMPLETED. WILL CONTINUE WITH PLAN OF CARE.
[2019-09-21] VITALS: BP 98/64
[2019-09-21 04:00] VITALS: BP 120/57
[2019-09-21 04:58] LABS: ABSOLUTE EOSINOPHILS 0.2 thou/uL (0.0-0.7); ABSOLUTE LYMPHOCYTES 1.4 thou/uL (0.8-5.3); ABSOLUTE MONOCYTES 0.5 thou/uL (0.0-1.2); ABSOLUTE NEUTROPHILS 2.7 thou/uL (1.6-8.1); BASOPHILS 0.4 %; HEMATOCRIT 52.4 % (37.0-47.0); HEMOGLOBIN 17.9 gm/dL (12.0-15.0); MCH 34.9 pg (26.0-34.0); MCHC 34.2 g/dL (28.0-37.0); MONOCYTES 11.2 %; MPV 8.3 fl. (7.2-11.1); NUCLEATED RBCS 1 /100WBC; PLATELET COUNT* 158 thou/uL (150-400); POLYS 55.4 %; RBC 5.14 mil/uL (4.20-5.00); WBC 4.9 thou/uL (4.0-11.0)
[2019-09-21 05:10] LABS: CALCIUM 8.4 mg/dL (8.5-10.1); CREATININE 1.2 mg/dL (0.6-1.3); POTASSIUM 3.2 mmol/L (3.5-5.1)
[2019-09-21 07:10] VITALS: BP 96/48
--- NOTE | 2019-09-21 09:00 | NUR ---
DTR LENO SHOLA REQUESTED A PHONE CALL FROM JOSE. SPOKE TO LENO ON THE PHONE. SHE STATES THAT SHE AND HER SISTER WOULD LIKE TO MEET WITH CM TODAY AROUND 1100 TO DISCUSS SNF OPTIONS
--- NOTE | 2019-09-21 09:30 | NUR ---
INITAL ASSESSMENT COMPLETED CHARTED. VSS. TRACING PACED ON MONITOR. PT DENIES PAIN. REFER TO COMPUTER CHARTING FOR FURTHER DETAILS. HOURLY ROUNDING AND FALL PRECAUTIONS IN PLACE FOR PT SAFETY. CLWR.
--- NOTE | 2019-09-21 10:59 | NUR ---
DR EDWARD TO DO PEER TO PEER EVAL. CALLED AND LEFT MESSAGE WITH DR EDWARD'S NUMBER FOR THEM TO RETURN HIS CALL
--- NOTE | 2019-09-21 11:28 | NUR ---
DISCUSSED SNU OPTIONS WITH DAUGHTERS. THEY STATE THEY WOULD LIKE PT TO GO TO [place] IN [place] FOR SNU WITH THE PLAN TO TRANSITION TO LTC IF SHE DOES NOT IMPROVE
[2019-09-21 12:00] VITALS: BP 100/56
--- NOTE | 2019-09-21 12:24 | NUR ---
REFERRAL FAXED TO [facility] [place]. THEY DO NOT ACCEPT [facility]. DISCUSSED WTIH DAUGHTERS. THEY WOULD LIKE [facility] OR [facility] IN [place]. REFERRALS FAXED
--- NOTE | 2019-09-21 15:35 | NUR ---
PT ACCEPTED TO [facility] [place]. AWAITING INSURANCE AUTH WHICH MAY NOT BE UNTIL TOMORROW. FAMILY AND PT INFORMED. NURSE TO CALL REPORT TO . TRANSPORTATION TO BE ARRANGED WHEN [facility] TO SAY INSURNACE APPROVAL WENT THROUGH
[2019-09-21 16:00] VITALS: BP 96/58
--- NOTE | 2019-09-21 18:00 | NUR ---
RECEIVED CALL FROM [facility] STATING THAT INSURNACE AUTH IS APPROVED AND PT CAN TRANSFER TO FACILITY IN AM.
--- NOTE | 2019-09-21 19:32 | NUR ---
INITAL ASSESSMENT COMPLETED CHARTED. VSS. PACED ON MONITOR.PT DENIES PAIN. REFER TO COMPUTER CHARTING FOR FURTHER DETAILS. HOURLY ROUNDING AND FALL PRECAUTIONS IN PLACE FOR PT SAFETY. CLWR.
[2019-09-21 20:00] VITALS: BP 110/54
[2019-09-22] VITALS: BP 96/64
[2019-09-22 03:30] VITALS: BP 103/53
[2019-09-22 04:46] LABS: ABSOLUTE EOSINOPHILS 0.2 thou/uL (0.0-0.7); ABSOLUTE LYMPHOCYTES 1.6 thou/uL (0.8-5.3); ABSOLUTE MONOCYTES 0.6 thou/uL (0.0-1.2); ABSOLUTE NEUTROPHILS 2.1 thou/uL (1.6-8.1); BASOPHILS 0.5 %; EOSINOPHILS 4.2 %; HEMATOCRIT 51.3 % (37.0-47.0); HEMOGLOBIN 17.6 gm/dL (12.0-15.0); LYMPHOCYTES 36.1 %; MCH 35.1 pg (26.0-34.0); MCHC 34.3 g/dL (28.0-37.0); MCV 102.3 fL (80.0-100.0); MONOCYTES 13.2 %; NUCLEATED RBCS 0 /100WBC; PLATELET COUNT* 162 thou/uL (150-400); RBC 5.02 mil/uL (4.20-5.00); RDW-CV 13.7 % (10.5-14.5); WBC 4.5 thou/uL (4.0-11.0)
[2019-09-22 04:57] LABS: CALCIUM 8.3 mg/dL (8.5-10.1); CREATININE 1.1 mg/dL (0.6-1.3); POTASSIUM 3.6 mmol/L (3.5-5.1)
--- NOTE | 2019-09-22 07:53 | NUR ---
NURSE NOTIFIED THAT PT CAN TRANSFER TODAY TO [facility]. DC ORDERS RECEIVED YESTERDAY. WILL CHECK WITH HOSPITALIST TODAY TO SEE IF NEW ORDERS ARE WRITTEN AND SET UP WC VAN
[2019-09-22] MEDS ORDERED: ADULT LOW DOSE81 MG PO (09:01)
[2019-09-22] MEDS ORDERED: LASIX 40 MG TAB40 M2 PO (09:01)
[2019-09-22] MEDS ORDERED: NAMENDA 10 MG T10 MG PO (09:01)
[2019-09-22] MEDS ORDERED: EXELON1 EACH TRANSDERM (09:01)
[2019-09-22] MEDS ORDERED: SINEMET 10-1001 EAC1 PO (09:01)
[2019-09-22] MEDS ORDERED: LEVAQUIN 500 M500 M3 PO (09:03)
[2019-09-22 09:11] VITALS: BP 118/67
--- NOTE | 2019-09-22 10:00 | NUR ---
INITAL ASSESSMENT COMPLETED CHARTED. VSS. VPACED ON MONITOR. PT DENIES PAIN, N/V/D. REFER TO COMPUTER CHARTING FOR FURTHER DETAILS. HOURLY ROUNDING AND FALL PRECAUTIONS IN PLACE FOR PT SAFETY. CLWR.
[2019-09-22 12:27] VITALS: BP 118/67
== END 2019-09-22 14:00 | DRG 177 ==
LOC: M.ERS 10:56 → M.2W 14:24 → M.TBA-ER 14:24 → M.2W 18:16
PROVIDERS: Internal Medicine; Physician Assistant; ADMIT Internal Medicine
DX: J15.6 Pneumonia due to other Gram-negative bacteria (principal); I21.A1 Myocardial infarction type 2; G93.41 Metabolic encephalopathy; I50.42 Chronic combined systolic (congestive) and diastolic (congestive) heart failure; I48.20 Chronic atrial fibrillation, unspecified; E87.2 Acidosis; E11.9 Type 2 diabetes mellitus without complications; E03.9 Hypothyroidism, unspecified; I48.0 Paroxysmal atrial fibrillation; E78.5 Hyperlipidemia, unspecified; E66.01 Morbid (severe) obesity due to excess calories; G47.33 Obstructive sleep apnea (adult) (pediatric); I11.0 Hypertensive heart disease with heart failure; I35.0 Nonrheumatic aortic (valve) stenosis; E86.0 Dehydration; D75.1 Secondary polycythemia; G20 Parkinson's disease; F02.80 Dementia in other diseases classified elsewhere, unspecified severity, without behavioral disturbance, psychotic disturbance, mood disturbance, and anxiety; F41.9 Anxiety disorder, unspecified; I65.23 Occlusion and stenosis of bilateral carotid arteries; I65.09 Occlusion and stenosis of unspecified vertebral artery; I67.9 Cerebrovascular disease, unspecified; Z79.01 Long term (current) use of anticoagulants; Z79.899 Other long term (current) drug therapy; Z95.0 Presence of cardiac pacemaker; Z86.711 Personal history of pulmonary embolism; Z82.49 Family history of ischemic heart disease and other diseases of the circulatory system; Z79.2 Long term (current) use of antibiotics; Z79.51 Long term (current) use of inhaled steroids; Z88.8 Allergy status to other drugs, medicaments and biological substances; Z68.33 Body mass index [BMI] 33.0-33.9, adult